=== PATIENT | male | born 1965 | race African-American/Black ===

== ENCOUNTER 2021-07-20 00:56 | Inpatient (IN) | payer BC, OTHER ==
[~2021-07-20] VITALS: Ht 185.4 cm; Wt 68.9 kg
--- NOTE | 2021-07-20 02:00 | NUR ---
PT BIBRA C/O BLOOD IN STOOL AND LOW HGB 5.9. LAST MELENA WAS AT 2345. PT PLACED ON MONITOR.
[2021-07-20] MEDS ORDERED: PANTOPRAZOLE 40 MG VIAL ONE (02:18)
[2021-07-20] MEDS: PANTOPRAZOLE 80 MG in IV NS 0.9% 500 ML IV ONE ×2 (02:23→02:32)
[2021-07-20 02:43] LABS: BASOPHILS % (AUTO) 0.2 % (0.0-2.0); EOSINOPHILS % (AUTO) 0.4 % (0.0-6.0); LYMPHOCYTES # (AUTO) 3.2 K/uL (0.8-4.8); LYMPHOCYTES % (AUTO) 32.3 % (20.0-44.0); MEAN CORPUSCULAR HGB CONC 33 g/dl (31.0-36.0); MEAN CORPUSCULAR VOLUME 97 fL (80-96); MONOCYTES # (AUTO) 0.7 K/uL (0.1-1.30); MONOCYTES % (AUTO) 7.3 % (2.0-12.0); NEUTROPHILS # (AUTO) 5.9 K/uL (1.8-8.9); NEUTROPHILS % (AUTO) 59.8 % (43.0-81.0); PLATELET COUNT (AUTO) 84 K/uL (150-450); WHITE BLOOD COUNT (AUTO) 9.9 K/uL (4.3-11.0)
[2021-07-20 02:53] LABS: RED BLOOD CELL COUNT(AUTO) 1.81 MIL/uL (4.5-6.0)
[2021-07-20 02:55] LABS: HEMATOCRIT 18 % (39-51); HEMOGLOBIN 5.8 g/dL (13.5-17.5)
[2021-07-20 02:59] LABS: ALANINE AMINOTRANSFERASE 18 U/L (12-78); ALBUMIN 1.6 g/dL (3.4-5.0); ALKALINE PHOSPHATASE 149 U/L (46-116); ASPARTATE AMINOTRANSFERASE 50 U/L (15-37); BILIRUBIN,DIRECT 0.1 mg/dL (0.0-0.2); BILIRUBIN,TOTAL 0.3 mg/dL (0.2-1.0); CALCIUM, SERUM 7.8 mg/dL (8.5-10.1); CARBON DIOXIDE 23 mmol/L (21-32); CHLORIDE 107 mmol/L (98-107); CREATININE 0.9 mg/dL (0.6-1.3); GLUCOSE 88 mg/dL (74-106); LIPASE 107 U/L (73-393); POTASSIUM 4.3 mmol/L (3.5-5.1); SODIUM SERUM 138 mmol/L (136-145); TOTAL PROTEIN, SERUM 5.4 g/dL (6.4-8.2); UREA NITROGEN, BLOOD 21 mg/dL (7-18)
[2021-07-20] MEDS ORDERED: IV NS 0.9% 1,000 ML BAG IV ONE ×2 (03:00→06:30)
--- NOTE | 2021-07-20 05:09 | NUR ---
CALL LAB TO FOLLOW UP WITH BLOOD AND PLATELET. BLOOD IS NOT READY YET.
--- NOTE | 2021-07-20 05:43 | NUR ---
DR MIRELES ON THE PHONE W/ LAURA DAWN
--- NOTE | 2021-07-20 05:56 | NUR ---
MRSA SWAB COLLECTED AND SENT TO LAB. PATIENT'S BELONGINGS LIST DONE.
--- NOTE | 2021-07-20 05:59 | NUR ---
DR MIRELES ON THE PHONE W/ DR VELIZ FOR GI CONSULT
[2021-07-20 07:41] LABS: CREATININE 0.9 mg/dL (0.6-1.3); POTASSIUM 4.2 mmol/L (3.5-5.1)
[2021-07-20 07:43] LABS: BASOPHILS % (AUTO) 0.2 % (0.0-2.0); EOSINOPHILS % (AUTO) 0.4 % (0.0-6.0); LYMPHOCYTES % (AUTO) 33.9 % (20.0-44.0); MEAN CORPUSCULAR HGB CONC 32 g/dl (31.0-36.0); MEAN CORPUSCULAR VOLUME 102 fL (80-96); MONOCYTES # (AUTO) 0.9 K/uL (0.1-1.30); MONOCYTES % (AUTO) 5.9 % (2.0-12.0); NEUTROPHILS # (AUTO) 8.7 K/uL (1.8-8.9); NEUTROPHILS % (AUTO) 59.6 % (43.0-81.0); PLATELET COUNT (AUTO) 75 K/uL (150-450); WHITE BLOOD COUNT (AUTO) 14.6 K/uL (4.3-11.0)
[2021-07-20 07:51] LABS: HEMATOCRIT 17 % (39-51); HEMOGLOBIN 5.5 g/dL (13.5-17.5)
[2021-07-20 08:22] LABS: MYELOCYTES % 1 % (0-0)
--- NOTE | 2021-07-20 09:35 | NUR ---
ALEXANDER TO PT POA; MORALES PHILIPPE [phone]
--- NOTE | 2021-07-20 09:47 | NUR ---
PER DR DAWN TO GIVE TOTAL OF 4 UNITS OF PRBS TO THE PATIENT ONCE THE BLOOD IS READY. SPOKE WITH GRACE FROM BLOOD BANK AND SHE INFORMED THAT THE PATIENT HAS ANTIBODIES AND BLOOD BANK IS STILL WORKING ON GETTING THE BLOOD. PER GRACE IT WILL TAKE HOURS. DR DAWN IS MADE AWARE.
--- NOTE | 2021-07-20 10:55 | NUR ---
TALKED TO SUSHILA LOVE AND SHE STATED PATIENT IS GOING TO BE TRANSFERED OUT TO ANOTHER FACILITY.
--- NOTE | 2021-07-20 11:50 | NUR ---
CALL FROM SUSHILA SWEENEY, ASKED BY DR DAWN TO HELP WITH TX.
--- NOTE | 2021-07-20 12:19 | NUR ---
FAXED COVID RESULT TO [phone] [facility]
[2021-07-20 14:07] LABS: BAND % (MANUAL) 12 % (0.0-5.0); LYMPHOCYTES % (MANUAL) 15 % (16-48); METAMYELOCYTES % 4 % (0-0); MONOCYTES % (MANUAL) 2 % (0-11.0); MYELOCYTES % 1 % (0-0); NEUTROPHILS % (MANUAL) 66 (42-76)
[2021-07-20 14:26] LABS: BAND % (MANUAL) 11 % (0.0-5.0)
[2021-07-20 14:27] LABS: LYMPHOCYTES % (MANUAL) 19 % (16-48); METAMYELOCYTES % 2 % (0-0); MONOCYTES % (MANUAL) 8 % (0-11.0)
--- NOTE | 2021-07-20 14:53 | NUR ---
REPORT GIVEN TO DEMETRIS ROGER FOR SRINI
--- NOTE | 2021-07-20 15:01 | NUR ---
BED GIVEN 117-2
[2021-07-20 15:03] LABS: NEUTROPHILS % (MANUAL) 59 (42-76)
[2021-07-20 16:00] VITALS: BP 137/66
--- NOTE | 2021-07-20 16:06 | NUR ---
PT TRANSFERRED TO [facility] VIA ACLS PROTOCOL. ALL BELONGINGS WITH PT.
--- NOTE | 2021-07-20 16:25 | NUR ---
SERVICE LINE LAYER NOTE PT RECEIVED VIA GURNEY FROM ER ON STABLE CONDITION ALERT AND ORIENTED X4 WITH NO S/SX OF SOB OR DISTRESS AT THIS TIME TOLERATING ROOM AIR WELL, BREATHING EVEN AND UNLABORED, PT CAME FROM SNF FOR COMPLAINS OF WEAKNESS, HEMOGLOBIN 5.5, WAITING FOR PRBC ORDER TO START BLOOD TRANSFUSION PICC LINE ON THE SCOOBY PATENT AND FLUSHING WELL, PT IS PRESENT WITH BLOODY WILLIE, CHANGED AND KEPT CLEAN, SAFETY MEASURES IN PLACE CALL LIGHT WITHIN REACH, BED LOCKED AND IN LOWEST POSITION WILL CONTINUE TO MONITOR
[2021-07-20] MEDS ORDERED: PEG 3350/NA SULF,BICARB,CL/KCL 4,000 ML BOTTLE PO ONE (17:00)
--- NOTE | 2021-07-20 17:30 | NUR ---
RN NOTE PER PHARMACY START BLOOD TRANSFUSION FIRST AND THEN THEY WILL LET US KNOW WHEN TO START THE GOLYTELY
[2021-07-20] MEDS: IV D5/ 0.9% NACL 1,000 ML IV PRN (17:42)
--- NOTE | 2021-07-20 18:17 | NUR ---
RN NOTE BLOOD IS NOT READY YET STILL WAITING FOR BLOOD BANK
--- NOTE | 2021-07-20 18:56 | NUR ---
RN NOTE PT REMAINS IN BED ALERT AND ORIENTED X4 WITH NO S/SX OF SOB OR DISTRESS AT THIS TIME TOLERATING ROOM AIR WELL, BREATHING EVEN AND UNLABORED, TELE READING TACHY 121 HEMOGLOBIN 5.5, WAITING FOR PRBC ORDER AND BLOOD BANK TO START BLOOD TRANSFUSION PICC LINE ON THE SCOOBY PATENT AND FLUSHING WELL RUNNING D5 100CC/HR , PT IS PRESENT WITH BLOODY WILLIE, CHANGED AND KEPT CLEAN, WAITING FOR PHARMACY TO BRING GOLYTELY TO DO A COLONOSCOPY TOMORROW, SAFETY MEASURES IN PLACE CALL LIGHT WITHIN REACH, BED LOCKED AND IN LOWEST POSITION WILL ENDORSE TO ACQUISITION LEADDRESS FITTER
--- NOTE | 2021-07-20 19:20 | NUR ---
TELE-TD/RN: SPOKE WITH BLOOD BANK ACCORDING TO THEM BLOOD IS A SEND OUT AND HASN'T BEEN PICKED UP BY [facility]. BLOOD WON'T BE AVAILABLE UNTIL STOKER INSTALLER. I SPOKE WITH DR. VELIZ ABOUT THE DELAY IN BLOOD HE WOULD STILL LIKE ME TO PROCEED WITH BOWEL PREP FOR COLONOSCOPY IN AM. WILL BEGIN SUKUMAR.
--- NOTE | 2021-07-20 19:33 | NUR ---
TELE-TD/RN: PT STATES HE CAN NOT PHYSICALLY DRINK A GALLON OF GOLYTELY. ASKED FOR NGTUBE SO MEDICATION CAN BE ADMINISTERED. PER DR. NEREYDA MUÑOZ TO PLACE NGT FOR MED ADMINISTRATION.
[2021-07-20 20:00] VITALS: BP 147/79
[2021-07-20] MEDS: PANTOPRAZOLE 40 MG VIAL IV SCH (20:06)
--- NOTE | 2021-07-20 20:35 | NUR ---
TELE-TD/RN: NGTUBE PLACED BY MYSELF MARKED 60CM AT THE RIGHT NARE. CONFIRMED BY AUSCULTATION. AWAITING CXR RESULTS.
[2021-07-20] MEDS: SOD FERRIC GLUC 125 MG in IV NS 0.9% 100 ML IV SCH (20:41)
[2021-07-20] MEDS ORDERED: ACETAMINOPHEN 325 MG TABLET PO PRN (21:00)
[2021-07-20] MEDS ORDERED: HYDROCODONE/APAP 5/325MG TABLET PO PRN (21:00)
[2021-07-20] MEDS ORDERED: ZOLPIDEM TARTRATE 5 MG TABLET PO PRN (21:00)
--- NOTE | 2021-07-20 21:00 | NUR ---
RN NOTES, SPOKE WITH BLOOD BANK REGARDING THE BLOOD THAT NEED TO BE TRANSFUSED YO PATIENT AND ACCORDING TO SUPERVISOR FERTILIZER PROCESSING, THE BLOOD IS NOT AVAILABLE AND THEY AWAITING FROM [facility] TO DELIVER, ACCORDING TO SUPERVISOR FERTILIZER PROCESSING [facility] HAS NOT BLOOD OF THAT TYPE AVAILABLE, QUESTION THE LAB THEN WHEN AND HOW WE GOING TO GET THE BLOOD, AND HE STATED THAT [facility] WILL LET THEM KNOW, WILL CONTINUE TO MONITOR AND GET IN TOUCH WITH LAB FOR UPDATE.
[2021-07-20 22:00] LABS: HEMOGLOBIN 4.7 g/dL (13.5-17.5)
--- NOTE | 2021-07-20 22:05 | NUR ---
TELE-TD/RN: CRITICAL H/H 4.02/[address] DAWN[address] PER [address]. NEREYDA MUÑOZ TO GIVE UNCROSS MATCHED BLOOD IF OK WITH BLOOD BANK.
--- NOTE | 2021-07-20 22:40 | NUR ---
tele-td/rn: PER TOBACCO BLENDER JONO EMERGENCY BLOOD WILL NOT SCAN THROUGH [employer]. BLOOD MANUALLY CHECKED WITH GAS ENGINEER MARIE. TYPE O POS, [phone], EXPIRATION 08/20/2021 PER TIN WHIZ MACHINE OPERATOR JONO THIS PRODUCT IS OK TO ADMINISTER BY PATHOLOGIST JESSICA PANDEY. PRE ADMINISTRATION VITALS TEMP 98.2 HR 118 BP 135/70 RR 20 WILL FOLLOW UP IN 15MINS PER PROTOCOL
--- NOTE | 2021-07-20 23:01 | NUR ---
15 MINS POST TRANSFUSION VITALS: PRE ADMINISTRATION VITALS TEMP 97.6 HR 112 BP 120/81 RR 20 Addendum: 07/20/21 at 2318 by LOGAN HAWKINS RN THESE ARE POST ADMINISTRATION VITALS.
--- NOTE | 2021-07-20 23:19 | NUR ---
30 MINS POST TRANSFUSION VITALS: TEMP 97.8 HR 111 BP 124/79 RR 20
[2021-07-21] VITALS (45 sets, daily range): BP systolic 80–137; BP diastolic 16–86
--- NOTE | 2021-07-21 | NUR ---
60 MINS POST TRANSFUSION VITALS: TEMP 98.0 HR 112 BP 137/86 RR 20
--- NOTE | 2021-07-21 01:14 | NUR ---
TELE-TD/RN: PT WAS REFUSING FURTHER TREATMENT UNLESS SOMETHING COULD BE DONE ABOUT HIS FREQUENT LARGE BOWL MOVEMENTS. DR. DAWN WAS NOTIFIED AND ORDER OR RECTAL TUBE WAS GIVEN. PLACED ON PT. PT TOLERATED WELL. DR. DAWN ORDERED ANOTHER UNIT OF BLOOD BUT ACCORDING TO THE LAB THERE IS NO ONE AVAILABLE TO DISTRIBUTE BLOOD UNTIL MORNING. WILL CONTINUE TO MONITOR THE PT CLOSELY.
--- NOTE | 2021-07-21 01:30 | NUR ---
END TRANSFUSION VITALS: TEMP 97.9 HR 108 BP 108/79 RR 20
--- NOTE | 2021-07-21 01:30 | NUR ---
TELE-TD/RN: PER DR. DAWN PT NEEDS 2 MORE UNITS PRBC. PT JUST FINISHED 1 UNIT PRBC BUT IS STILL HAVING FREQUENT LARGE MARCO RED BLOOD STOOLS. DR. DAWN ASKED ME TO INITIATE CHAIN OF COMMAND TO GET BLOOD TO THE PT. COMMUNICATIONS EQUIPMENT INSTALLER HEMALATHA MADE AWARE. SHE SAID SHE WILL CALL THE MAILING SECTION CLERK. WILL CONTINUE TO MONITOR PT.
--- NOTE | 2021-07-21 02:00 | NUR ---
TELE-TD/RN: SP;Nicole;JENNIFER; WITH NURSING MOLECULAR GENETIC PATHOLOGIST TEOFILO. SHE CALLED THE PC NETWORK TECHNICIAN BUT THERE WAS NO ANSWER. SHE WILL ATTEMPT TO CALL AGAIN NOW.
[2021-07-21 02:15] LABS: BASOPHILS % (AUTO) 0.3 % (0.0-2.0); EOSINOPHILS % (AUTO) 0.5 % (0.0-6.0); HEMATOCRIT 21 % (39-51); LYMPHOCYTES # (AUTO) 2.7 K/uL (0.8-4.8); MEAN CORPUSCULAR HGB CONC 34 g/dl (31.0-36.0); MEAN CORPUSCULAR VOLUME 93 fL (80-96); MONOCYTES # (AUTO) 0.4 K/uL (0.1-1.30); MONOCYTES % (AUTO) 5.1 % (2.0-12.0); NEUTROPHILS # (AUTO) 5.2 K/uL (1.8-8.9); NEUTROPHILS % (AUTO) 62.1 % (43.0-81.0); PLATELET COUNT (AUTO) 51 K/uL (150-450); RED BLOOD CELL COUNT(AUTO) 2.21 MIL/uL (4.5-6.0)
[2021-07-21 02:19] LABS: HEMOGLOBIN 6.9 g/dL (13.5-17.5)
--- NOTE | 2021-07-21 02:39 | NUR ---
TELE-TD/RN: LATEST H/H .04/[address] DAWN. WILL CONTINUE TO MONITOR.
[2021-07-21] MEDS: IV D5/ 0.9% NACL 1,000 ML IV PRN ×2 (05:00→12:11)
--- NOTE | 2021-07-21 06:13 | NUR ---
TELE-TD/RN: DR. DAWN GIVEN UPDATE ON PT. PER DR. DAWN PT NEEDS 2 UNITS PRBC STAT. PER FUEL DISTRIBUTION SYSTEM OPERATOR GABBY NO ONE IS CURRENTLY AVAILABLE TO RELEASE BLOOD. WILL TRY AGAIN SHORTLY.
--- NOTE | 2021-07-21 06:40 | NUR ---
RN NOTES, SPOKE WITH MAY FROM BLOOD BANK TO GET INFORMATION ABOUT THE BLOOD FOR PATIENT, WE AWAITING FROM LAST NIGHT, AND SHE SAID THAT THEY STILL WORKING ON THAT, AND WILL LET US KNOW SOON THEY HAVE AVAILABLE, ACCORDING TO HER [facility] HAS NOT DELIVER THE BLOOD.
--- NOTE | 2021-07-21 07:05 | NUR ---
TELE-TD/RN: ENDORSE STAT PRBC TO DANIELLE ROGER.
[2021-07-21] MEDS ORDERED: MAGN400O6 PO (07:32)
[2021-07-21] MEDS ORDERED: PANT40TA2 PO (07:32)
[2021-07-21] MEDS ORDERED: MULT-447 PO (07:32)
[2021-07-21] MEDS ORDERED: HYDR-3973 PO (07:32)
[2021-07-21] MEDS ORDERED: BISA10SU11 RC (07:32)
[2021-07-21] MEDS ORDERED: DOCU-141 PO (07:32)
[2021-07-21] MEDS ORDERED: NA P133E RC (07:32)
--- NOTE | 2021-07-21 07:46 | NUR ---
RN MORNING NOTE PT IS AWAKE AND LYING IN BED. PT IS ON RA AND TOLERATING WELL WITH NO SIGNS OF DISTRESS OR LABORED BREATHING. PT IS A/OX4. NG TUBE IS IN PLACE WITH NO SUCTION AND PT ALSO HAS RECTAL TUBE WITH BLOOD IN COLLECTION POUCH. PT HAS L UA PICC LINE INFUSING D5NS @ 100 ML/HR. PT IS NPO AND ON BR. PT SCHEDULED FOR COLONOSCOPY TODAY, ALL CONSENTS HAVE BEEN SIGNED. BE IS LOCKED IN LOWEST POSITION X2 GUARD RAILS UP, CALL LIGHT IS WITHIN REACH, AND ALL HOSPITAL PROTOCOLS ARE IN PLACE. WILL CONTINUE TO MONITOR THIS SHIFT.
[2021-07-21] MEDS: PANTOPRAZOLE 40 MG VIAL IV SCH ×2 (08:08→21:39)
--- NOTE | 2021-07-21 10:11 | NUR ---
patient become more altered,dasaturates on n/c to 80's,sbp on 80,s,still awaits blood,rapid response called,bolus ns started dr. nicolas notified per blood bank blood still not availble.
[2021-07-21] MEDS ORDERED: NOREPINEPHRINE 8 MG in IV NS 0.9% 242 ML IV PRN (10:30)
[2021-07-21 10:35] LABS: BASOPHILS # (AUTO) 0.1 K/uL (0.0-0.2); BASOPHILS % (AUTO) 0.4 % (0.0-2.0); EOSINOPHILS % (AUTO) 0.3 % (0.0-6.0); LYMPHOCYTES # (AUTO) 4.9 K/uL (0.8-4.8); LYMPHOCYTES % (AUTO) 31.6 % (20.0-44.0); MEAN CORPUSCULAR HGB CONC 33 g/dl (31.0-36.0); MEAN CORPUSCULAR VOLUME 93 fL (80-96); MONOCYTES # (AUTO) 0.6 K/uL (0.1-1.30); MONOCYTES % (AUTO) 3.8 % (2.0-12.0); NEUTROPHILS % (AUTO) 63.9 % (43.0-81.0); RED BLOOD CELL COUNT(AUTO) 2.13 MIL/uL (4.5-6.0); WHITE BLOOD COUNT (AUTO) 15.6 K/uL (4.3-11.0)
[2021-07-21 10:38] LABS: HEMATOCRIT 20 % (39-51); HEMOGLOBIN 6.5 g/dL (13.5-17.5); PLATELET COUNT (AUTO) 48 K/uL (150-450)
--- NOTE | 2021-07-21 11:15 | NUR ---
transferred to icu per protocol.
--- NOTE | 2021-07-21 13:35 | NUR ---
RN NOTE BEGIN TRANSFUSION PT IS O NEG, PT RECEIVING O POSITIVE BLOOD DUE TO EMERGENCY BLOOD ORDER. PER DR. PANDEY, OK TO GIVE O NEG. TRANSFUSION HAS BEGUN AT THIS TIME. VS: TEMP 97.8, HR 117, RR 22, BP 92/69. WILL CONTINUE TO MONITOR. Addendum: 07/21/21 at 1602 by DANIELLE SIN RN NAVEED SHANNONING IS BEING DONE ON PAPER
[2021-07-21 13:49] LABS: CALCIUM, SERUM 7.1 mg/dL (8.5-10.1); CREATININE 0.9 mg/dL (0.6-1.3); POTASSIUM 3.7 mmol/L (3.5-5.1)
[2021-07-21 13:53] LABS: HEMOGLOBIN 4.9 g/dL (13.5-17.5)
[2021-07-21] MEDS ORDERED: EPOETIN ALFA-EPBX 10,000 UNIT/ML VIAL IV ONE (15:00)
--- NOTE | 2021-07-21 15:35 | NUR ---
RN NOTE BEGIN TRANSFUSION BEGINNING SECOND UNIT OF PRBC. PT IS O NEG, PT RECEIVING O POSITIVE BLOOD DUE TO EMERGENCY BLOOD ORDER. PER DR. PANDEY, OK TO GIVE O NEG. TRANSFUSION HAS BEGUN AT THIS TIME. VS: TEMP 98.6, HR 114, RR 22, BP 86/62. TOLERATING WELL AT THIS TIME. WILL CONTINUE TO MONITOR. Addendum: 07/21/21 at 1722 by DANIELLE SIN RN NAVEED CHARTING IS BEING DONE ON PAPER.
--- NOTE | 2021-07-21 17:15 | NUR ---
RN NOTE PHONE CALL RECEIVED CALL FROM MORALES PHILIPPE. PER MORALES, SHE IS PTS EX . PT VERBALIZED AND AGREED MORALES IS HIS EX AND POA AND VERBALIZED PERMISSION TO TALK TO MORALES.
[2021-07-21 17:29] LABS: BAND % (MANUAL) 2 % (0.0-5.0); EOSINOPHILS % (MANUAL) 2 % (0-4); LYMPHOCYTES % (MANUAL) 18 % (16-48); METAMYELOCYTES % 5 % (0-0); MONOCYTES % (MANUAL) 3 % (0-11.0); MYELOCYTES % 3 % (0-0); NEUTROPHILS % (MANUAL) 66 (42-76); REACTIVE LYMPHOCYTES 1 % (0-0)
--- NOTE | 2021-07-21 17:30 | NUR ---
RN NOTE TRANSFUSION TRANSFUSION ENDED. TOLERATED WELL PT STABLE AT THIS TIME. VS: T 98.3 HR 111 RR 20 BP 87/66. COMPLETED MANUAL BLOOD TRANSFUSION SHEET.
[2021-07-21 17:35] LABS: WHITE BLOOD COUNT (AUTO) 10.6 K/uL (4.3-11.0)
[2021-07-21] MEDS ORDERED: NS IV ONE (19:00)
--- NOTE | 2021-07-21 19:22 | NUR ---
RN CLOSING NOTE PT WAS TRANSFERRED TO ICU FROM [facility] THIS MORNING AFTER COMPLAINTS OF SOB. PT BP HAD DECREASED AND PT BECAME LETHARGIC. PT RECEIVED 3L BOLUS NS. PT IS CURRENTLY IN BED AND ON 15L O2 VIA NON REBREATHER SAT 100% TOLERATING WELL WITH NO SIGNS OF DISTRESS OR LABORED BREATHING. PT IS TELE MONITORED AND ST 110. PT IS A/OX4 AND NPO. RECTAL TUBE IS IN PLACE AND DRAINING FROM RECTAL BLEED. PT HAS L UA PICC LINE PATENT AND FLUSHING WELL INFUSING WITH D5NS @100ML/HR. PT RECEIVED 2 UNITS PRBC AND TOLERATED WELL WITH NO REACTIONS. PT IS CURRENTLY WAITING FOR 2 UNITS OF PLATELETS WHEN AVAILABLE FROM LAB. WILL ENDORSE TO OPTOMETRIC TECH NURSE FOR SRINI.
--- NOTE | 2021-07-21 19:30 | NUR ---
ICU/RN: RECEIVED PT IN BED A/Ox4. PT IS ON 15L NRB. PT TITRATED OFF SATURATING WELL ON NASAL CANULA 4 LITERS NO SIGNS OF DISTRESS OR LABORED BREATHING. NGTUBE IN PLACE 60cm @ RIGHT NARES CLAMPED. PT HAS RECTAL TUBE WITH BLOOD/STOOL IN COLLECTION POUCH. PT HAS LEFT UA PICC LINE INFUSING FLUSHING WELL.. PT IS NPO. BED IS LOCKED IN LOWEST POSITION X2 GUARD RAILS UP, CALL LIGHT IS WITHIN REACH WILL CONTINUE TO MONITOR.
[2021-07-21] MEDS: SOD FERRIC GLUC 125 MG in IV NS 0.9% 100 ML IV SCH (20:00)
[2021-07-21 20:44] LABS: HEMOGLOBIN 10.3 g/dL (13.5-17.5)
--- NOTE | 2021-07-21 22:00 | NUR ---
ICU/RN: DR. ALMARAZ AT BEDSIDE TO EVALUATE PT.
--- NOTE | 2021-07-21 23:15 | NUR ---
ICU/RN: PER CRAIG IN LAB THE [facility] DOESN'T HAVE PLATELETS AVAILABLE UNTIL TOMORROW MORNING.
[2021-07-22] VITALS (82 sets, daily range): BP systolic 56–112; BP diastolic 33–80
[2021-07-22 00:49] LABS: HEMOGLOBIN 9.4 g/dL (13.5-17.5)
[2021-07-22 05:13] LABS: BASOPHILS % (AUTO) 0.1 % (0.0-2.0); CALCIUM, SERUM 7.9 mg/dL (8.5-10.1); EOSINOPHILS % (AUTO) 0.2 % (0.0-6.0); HEMATOCRIT 30 % (39-51); LYMPHOCYTES # (AUTO) 2.4 K/uL (0.8-4.8); LYMPHOCYTES % (AUTO) 12.2 % (20.0-44.0); MEAN CORPUSCULAR HGB CONC 33 g/dl (31.0-36.0); MEAN CORPUSCULAR VOLUME 92 fL (80-96); MONOCYTES # (AUTO) 0.6 K/uL (0.1-1.30); MONOCYTES % (AUTO) 2.8 % (2.0-12.0); NEUTROPHILS # (AUTO) 16.8 K/uL (1.8-8.9); NEUTROPHILS % (AUTO) 84.7 % (43.0-81.0); POTASSIUM 3.8 mmol/L (3.5-5.1); RED BLOOD CELL COUNT(AUTO) 3.28 MIL/uL (4.5-6.0); WHITE BLOOD COUNT (AUTO) 19.8 K/uL (4.3-11.0)
[2021-07-22 05:52] LABS: PLATELET COUNT (AUTO) 11 K/uL (150-450)
--- NOTE | 2021-07-22 06:45 | NUR ---
ICU/RN: PER BLOOD BANK CLS PTS PLTS WILL ARRIVE IN 2 HOU[address] TO THE [facility]. [address]. DAWN UPDATED. WILL ENDORSE TO AM SHIFT.
--- NOTE | 2021-07-22 07:45 | NUR ---
ICU/RN PT IS RESTING IN THE BED.ON 4L N/C SAT O2-100%.V/S STABLE,AFEBRILE.OFF LEVOPHED. AWAKE ,ALERT .LEFT UPPER ARM PICC LINE.USING URINAL .PT HAS GI BLEED.HAS RECTAL TUBE WITH BLOODY STOOL WAITING FOR COLONOSCOPY.NPO.NG TUBE CLAMPED.SACRAL WOUND COVERED WITH DRESSING. LABS REVIEW.PLT-11.WAITING FOR PLATELETS FROM [facility]. REPOSITION FOR COMFORT.
[2021-07-22] MEDS: PANTOPRAZOLE 40 MG VIAL IV SCH ×2 (08:13→22:47)
--- NOTE | 2021-07-22 09:00 | NUR ---
ICU/RN DUE MEDS ARE GIVEN ORDERED.
[2021-07-22 09:17] LABS: HEMOGLOBIN 9.8 g/dL (13.5-17.5)
[2021-07-22 12:21] LABS: BAND % (MANUAL) 4 % (0.0-5.0); LYMPHOCYTES % (MANUAL) 12 % (16-48); MONOCYTES % (MANUAL) 2 % (0-11.0); NEUTROPHILS % (MANUAL) 82 (42-76)
--- NOTE | 2021-07-22 13:15 | NUR ---
ICU/RN 1 UNIT OF PLATELETS GIVEN ORDERED. NO S/S OF REACTION NOTED. V/S STABLE,AFEBRILE . H/H STAT ORDERED.PM CARE PROVIDED.WOUND DRESSING DONE ORDERED.
[2021-07-22] MEDS: SOD FERRIC GLUC 125 MG in IV NS 0.9% 100 ML IV SCH (14:22)
[2021-07-22 15:16] LABS: BASOPHILS % (AUTO) 0.1 % (0.0-2.0); EOSINOPHILS % (AUTO) 0.2 % (0.0-6.0); HEMATOCRIT 27 % (39-51); LYMPHOCYTES # (AUTO) 2.3 K/uL (0.8-4.8); LYMPHOCYTES % (AUTO) 15.2 % (20.0-44.0); MEAN CORPUSCULAR HGB CONC 34 g/dl (31.0-36.0); MEAN CORPUSCULAR VOLUME 91 fL (80-96); MONOCYTES # (AUTO) 0.5 K/uL (0.1-1.30); MONOCYTES % (AUTO) 3.2 % (2.0-12.0); NEUTROPHILS # (AUTO) 12.2 K/uL (1.8-8.9); NEUTROPHILS % (AUTO) 81.3 % (43.0-81.0); PLATELET COUNT (AUTO) 81 K/uL (150-450); RED BLOOD CELL COUNT(AUTO) 2.91 MIL/uL (4.5-6.0)
[2021-07-22 15:44] LABS: BAND % (MANUAL) 6 % (0.0-5.0); LYMPHOCYTES % (MANUAL) 10 % (16-48); MONOCYTES % (MANUAL) 1 % (0-11.0); NEUTROPHILS % (MANUAL) 83 (42-76)
[2021-07-22 15:46] LABS: WHITE BLOOD COUNT (AUTO) 15.1 K/uL (4.3-11.0)
--- NOTE | 2021-07-22 18:40 | NUR ---
ICU/RN PT IS BACK FROM COLONOSCOPY,NO RECTAL TUBE.PT HAS RECTAL MASS.PM CARE PROVIDED.REPOSITION FOR COMFORT.PER DR HILLS.PT NEEDS 2 MORE PLT .
--- NOTE | 2021-07-22 19:30 | NUR ---
ICU/RN: RECEIVED PT IN BED A/Ox4. PT IS ON 10L SIMPLE MASK. PT TITRATED OFF SATURATING WELL ON ROOM AIR. NO SIGNS OF DISTRESS OR LABORED BREATHING. NGTUBE DISCONTINUED. PT HAS LEFT UA PICC LINE FLUSHING WELL. BED IS LOCKED IN LOWEST POSITION X2 GUARD RAILS UP, CALL LIGHT IS WITHIN REACH WILL CONTINUE TO MONITOR.
--- NOTE | 2021-07-22 20:30 | NUR ---
ICU/RN: POA CALLED AND GIVEN UPDATE ON PT.
[2021-07-23] VITALS (30 sets, daily range): BP systolic 89–107; BP diastolic 67–79
--- NOTE | 2021-07-23 01:00 | NUR ---
ICU/RN: PT HAD SMALL LIQUID BM. BATHED AND LINENS CHANGED PT TOLERATED WELL.
[2021-07-23 04:45] LABS: BASOPHILS % (AUTO) 0.1 % (0.0-2.0); EOSINOPHILS % (AUTO) 0.2 % (0.0-6.0); HEMATOCRIT 24 % (39-51); HEMOGLOBIN 8.1 g/dL (13.5-17.5); LYMPHOCYTES # (AUTO) 3.2 K/uL (0.8-4.8); LYMPHOCYTES % (AUTO) 16.3 % (20.0-44.0); MEAN CORPUSCULAR HGB CONC 34 g/dl (31.0-36.0); MEAN CORPUSCULAR VOLUME 91 fL (80-96); MONOCYTES # (AUTO) 0.6 K/uL (0.1-1.30); MONOCYTES % (AUTO) 3.1 % (2.0-12.0); NEUTROPHILS # (AUTO) 15.6 K/uL (1.8-8.9); NEUTROPHILS % (AUTO) 80.3 % (43.0-81.0); PLATELET COUNT (AUTO) 82 K/uL (150-450); RED BLOOD CELL COUNT(AUTO) 2.66 MIL/uL (4.5-6.0); WHITE BLOOD COUNT (AUTO) 19.4 K/uL (4.3-11.0)
[2021-07-23 05:21] LABS: ALBUMIN 1.6 g/dL (3.4-5.0); BILIRUBIN,DIRECT 0.2 mg/dL (0.0-0.2); BILIRUBIN,TOTAL 0.7 mg/dL (0.2-1.0); CALCIUM, SERUM 7.4 mg/dL (8.5-10.1); CREATININE 0.9 mg/dL (0.6-1.3); POTASSIUM 3.6 mmol/L (3.5-5.1); TOTAL PROTEIN, SERUM 4.9 g/dL (6.4-8.2)
--- NOTE | 2021-07-23 08:00 | NUR ---
RN NOTES RECEIVED PATIENT (PT) ASLEEP, WOKE UP AN HOUR INTO SHIFT, PT ABLE TO MAKE NEEDS KNOWN, GRIMACING AND GRUNTING NOTED WHEN PLACED IN HIGH WARREN POSITION TO EAT BREAKFAST, OFFERED PAIN MEDICATION STATED IN A LEVEL OF 2 FROM 0-10 HOWEVER REFUSED ANY PAIN MEDICATIONS AT THIS TIME, THIN LIQUID DIET NOTED, LEFT UA IV LINE INTACT AND PATENT, URINE OUTPUT 200 ml RED JIMMY COLOR, SIDE RAILS UP X 2 FOR SAFETY, BED WHEELS LOCKED, BED IN LOW POSITION FOR SAFETY, CALL LIGHT IN REACH.
[2021-07-23] MEDS: PANTOPRAZOLE 40 MG VIAL IV SCH (08:12)
[2021-07-23] MEDS ORDERED: Potassium Chloride 10 MEQ in IV NS 0.9% 1,000 ML IV PRN (12:00)
[2021-07-23 12:35] LABS: CALCIUM, SERUM 7.7 mg/dL (8.5-10.1); CREATININE 0.9 mg/dL (0.6-1.3); POTASSIUM 3.6 mmol/L (3.5-5.1)
[2021-07-23 12:38] LABS: HEMOGLOBIN 8.2 g/dL (13.5-17.5)
[2021-07-23 13:22] LABS: BAND % (MANUAL) 4 % (0.0-5.0); LYMPHOCYTES % (MANUAL) 20 % (16-48); MONOCYTES % (MANUAL) 3 % (0-11.0); NEUTROPHILS % (MANUAL) 73 (42-76)
[2021-07-23] MEDS: SOD FERRIC GLUC 125 MG in IV NS 0.9% 100 ML IV SCH (13:49)
[2021-07-23] MEDS: EPOETIN ALFA-EPBX 10,000 UNIT/ML VIAL IV SCH (15:18)
--- NOTE | 2021-07-23 16:02 | NUR ---
RN NOTES COVID 19 SWAB PERFORMED ON PATIENT DUE TO INCONCLUSIVE UNDETERMINED PREVIOUS TEST, SPECIMEN TAKEN TO LAB FOR EVALUATION, STATUS PENDING AT THIS TIME. NO S/S OF COVID NOTED NO SOB, NO FEVER, NO CHILLS, KEPT WARM WITH WARM BLANKETS OFTEN ROOM IS VERY COLD AT THIS TIME, OTHER RNs HELPED TRY TO GET THE TEMP IN ROOM MORE WARM AWAITING TO SEE IF SETTING THERMOMETER WORKED. BED LOW TO FLOOR, WHEELS LOCKED, CALL LIGHT IN REACH
--- NOTE | 2021-07-23 18:53 | NUR ---
RN Notes TRANSFERRED PT TO TELL MED SURG ROOM 111, REPORT GIVEN TO RN, PHOTO TAKEN OF COCCYX AREA AND PLACED IN FILE AND DOCUMENTED WITH MEASURING RULER, BM X2 RED BROWN, CLEANED DRY AND FRESH BRIEF APPLIED BEFORE TRANSFER TO MED SURG, ALL BELONGINGS TAKEN WITH PATIENT TO ROOM BACK PACK AND PERSONAL BELONGINGS, BED LOW TO FLOOR LOCKED AND SIDE RAILS UP X2, WHEELS LOCKED. CALL LIGHT IN REACH IN ROOM 111.
--- NOTE | 2021-07-23 19:30 | NUR ---
RN OPENING NOTE PATIENT IN BED, AWAKE. A/O X 3. PATIENT IS ABLE TO MAKE NEEDS KNOWN. PATIENT NOT IN ANY APPARENT DISTRESS OR PAIN AT THIS TIME. TELE MONITOR READS [address] PATIENT SCOOBY PICC LINE PATENT AND INTACT WITH IVF RUNNING WELL. PATIENT ON RA, TOLERATING WELL. SAFETY MEASURES IN PLACE:BED LOCKED AND IN LOWEST POSITION, CALL LIGHT WITHIN REACH, SIDE RAILS UP. WILL MONITOR PATIENT CLOSELY.
[2021-07-24] VITALS (10 sets, daily range): BP systolic 89–94; BP diastolic 56–70
--- NOTE | 2021-07-24 05:50 | NUR ---
RN NOTE FAXED ORDER FOR POTASSIUM 10 MEQ IN IV NS 0.9% 1000 ML TO NURSING CONTINUOUS IMPROVEMENT CONSULTANT, PER NURSING SUP. WE DON'T HAVE MED IN STOCK.
--- NOTE | 2021-07-24 07:00 | NUR ---
RN CLOSING NOTE PATIENT IN BED, EYES CLOSED. A/O X 3. PATIENT IS ABLE TO MAKE NEEDS KNOWN. PATIENT NOT IN ANY APPARENT DISTRESS OR PAIN AT THIS TIME. TELE MONITOR READS [address] PATIENT SCOOBY PICC LINE PATENT AND INTACT. IVF ON PAUSE AT THIS TIME. PATIENT ON RA, TOLERATING WELL. SAFETY MEASURES IN PLACE: BED LOCKED AND IN LOWEST POSITION, CALL LIGHT WITHIN REACH, SIDE RAILS UP. ALL NEEDS MET AND ATTENDED. ALL ORDERS CARRIED OUT. WILL ENDORSE TO DAY SHIFT NURSE FOR SRINI.
--- NOTE | 2021-07-24 07:22 | NUR ---
RN OPENING NOTE RECEIVED PATIENT IN BED A/O X 4 ON ROOM AIR. NO CURRENT SING OF DISTRESS, PATIENT DENIES ANY PAIN. PATIENT HAS A DIAPER AND IS ON A CLEAR LIQUID DIET. SCOOBY PICC IN PLACE SL. SAFETY PROTOCOL IN PLACE, BED IN LOWEST POSITION, 2 SIDE RAILS UP AND LOCKED. CALL LIGHT WITHIN REACH.
[2021-07-24 07:46] LABS: HEMOGLOBIN 7.1 g/dL (13.5-17.5)
[2021-07-24] MEDS: PANTOPRAZOLE 40 MG VIAL IV SCH (08:13)
[2021-07-24 08:48] LABS: BASOPHILS % (AUTO) 0.3 % (0.0-2.0); EOSINOPHILS % (AUTO) 0.3 % (0.0-6.0); HEMATOCRIT 22 % (39-51); HEMOGLOBIN 7.1 g/dL (13.5-17.5); LYMPHOCYTES # (AUTO) 2.4 K/uL (0.8-4.8); LYMPHOCYTES % (AUTO) 20.7 % (20.0-44.0); MEAN CORPUSCULAR HGB CONC 33 g/dl (31.0-36.0); MEAN CORPUSCULAR VOLUME 93 fL (80-96); MONOCYTES # (AUTO) 0.4 K/uL (0.1-1.30); MONOCYTES % (AUTO) 3.2 % (2.0-12.0); NEUTROPHILS # (AUTO) 8.7 K/uL (1.8-8.9); NEUTROPHILS % (AUTO) 75.5 % (43.0-81.0); RED BLOOD CELL COUNT(AUTO) 2.33 MIL/uL (4.5-6.0); WHITE BLOOD COUNT (AUTO) 11.5 K/uL (4.3-11.0)
[2021-07-24 08:50] LABS: PLATELET COUNT (AUTO) 37 K/uL (150-450)
[2021-07-24 08:51] LABS: LYMPHOCYTES % (MANUAL) 16 % (16-48); MONOCYTES % (MANUAL) 2 % (0-11.0); NEUTROPHILS % (MANUAL) 82 (42-76)
[2021-07-24] MEDS: SOD FERRIC GLUC 125 MG in IV NS 0.9% 100 ML IV SCH (14:50)
[2021-07-24] MEDS: EPOETIN ALFA-EPBX 10,000 UNIT/ML VIAL IV SCH (15:15)
--- NOTE | 2021-07-24 18:37 | NUR ---
RN CLOSING NOTE PATIENT IN BED A/O X 4 ON ROOM AIR. NO CURRENT SING OF DISTRESS, PATIENT DENIES ANY PAIN. PATIENT HAS A DIAPER AND IS ON A CLEAR LIQUID DIET. SCOOBY PICC IN PLACE SL. ALL MEDICATIONS ORDERED GIVEN AND NEEDS MET THOUGH OUT SHIFT SAFETY PROTOCOL IN PLACE, BED IN LOWEST POSITION, 2 SIDE RAILS UP AND LOCKED. CALL LIGHT WITHIN REACH. WILL ENDORSE TO NIGHT NURSE FOR SRINI.
--- NOTE | 2021-07-24 19:40 | NUR ---
NEWS VIDEOTAPE EDITOR OPENING NOTE PATIENT SLEEPING IN BED, EASILY AWAKENED, ALERT/ORIENTED X 4. PT STABLE ON RA, NO S/S OF DISTRESS OR SOB NOTED, BREATHING EVEN AND UNLABORED. PATIENT ON EXTERNAL INTERSTATE PLANNER READING SINUS TACHY, HR: 137. PT ON CLEAR LIQUID DIET. AWAITING BLOOD FOR TRANSFUSION. PER DAY SHIFT RN, PHARMACY WILL BRING NEW BAG OF POTASSIUM CHLORIDE IN NS. SCOOBY PICC LINE INTACT AND FLUSHING WELL, SALINE LOCKED. SAFETY MEASURES IN PLACE: CALL LIGHT WITHIN REACH, SIDE RAILS UP X, BED LOCKED IN LOW POSITION, BED ALARM ON. WILL CONTINUE TO MONITOR PATIENT
--- NOTE | 2021-07-24 23:00 | NUR ---
cream buyer Notes 1 unit of PRBC transfused. Patient tolerated well, no adverse effects. Vital signs wnl. Will continue to monitor patient
[2021-07-25] VITALS (16 sets, daily range): BP systolic 77–92; BP diastolic 47–65
--- NOTE | 2021-07-25 | NUR ---
WELDER/FITTER NOTE Iris from [place] called regarding transfer, wanted to know if financial clearance had been done by CM, stated I didn't see anything in the notes. Faxed COVID test results per request. Per Iris no bed available yet. Will endorse to day shift to f/u with CM
--- NOTE | 2021-07-25 04:00 | NUR ---
PLANT CONTROLS SPECIALIST NOTE CALLED LAB TO SEE IF 1 MORE UNIT OF PRBC IS AVAILABLE FOR PATIENT SINCE 2 UNITS NEED TO BE TRANSFUSED. PER LAB NOT AVAILABLE AT THIS TIME. ALSO STATED THAT PLATELETS WERE ORDERED BUT HADN'T ARRIVED. WILL ENDORSE TO DAY SHIFT NURSE
[2021-07-25 07:09] LABS: BASOPHILS % (AUTO) 0.2 % (0.0-2.0); EOSINOPHILS % (AUTO) 0.4 % (0.0-6.0); LYMPHOCYTES # (AUTO) 3.3 K/uL (0.8-4.8); LYMPHOCYTES % (AUTO) 29.6 % (20.0-44.0); MEAN CORPUSCULAR HGB CONC 34 g/dl (31.0-36.0); MEAN CORPUSCULAR VOLUME 87 fL (80-96); MONOCYTES # (AUTO) 0.5 K/uL (0.1-1.30); MONOCYTES % (AUTO) 4.1 % (2.0-12.0); NEUTROPHILS # (AUTO) 7.4 K/uL (1.8-8.9); NEUTROPHILS % (AUTO) 65.7 % (43.0-81.0); RED BLOOD CELL COUNT(AUTO) 2.32 MIL/uL (4.5-6.0); WHITE BLOOD COUNT (AUTO) 11.3 K/uL (4.3-11.0)
--- NOTE | 2021-07-25 07:20 | NUR ---
RN OPENING NOTE RECEIVED PATIENT IN BED A/O X 4 ON ROOM AIR. NO CURRENT SING OF DISTRESS, PATIENT DENIES ANY PAIN. PATIENT HAS A DIAPER AND IS ON A CLEAR LIQUID DIET. PATIENT AWAITING ONE MORE UNIT OF BLOOD TO BE ADMINISTERED ALONG WITH PLATELETS. PER NIGHT NURSE CALLED LAB AND UNIT NOT READY YET, WILL CALL LAB FOR UPDATE. SCOOBY PICC IN PLACE SL. SAFETY PROTOCOL IN PLACE, BED IN LOWEST POSITION, 2 SIDE RAILS UP AND LOCKED. CALL LIGHT WITHIN REACH.
--- NOTE | 2021-07-25 07:24 | NUR ---
outpatient facility physical therapist Closing Note Patient awake in bed, alert/oriented x 4, pt stable on RA, no s/s of distress or sob noted, breathing even and unlabored. No significant changes throughout shift, medications given as ordered, pt needs met throughout shift. Patient on external residential monitor reading sinus tachy, HR: 123. Safety measures in place: Call light within reach, side rails up x 2, bed locked in low position, bed alarm on. Endorsed to day shift nurse for continuity of care
[2021-07-25 07:47] LABS: CALCIUM, SERUM 7.6 mg/dL (8.5-10.1); POTASSIUM 4.2 mmol/L (3.5-5.1)
[2021-07-25 08:33] LABS: HEMATOCRIT 20 % (39-51)
[2021-07-25] MEDS: PANTOPRAZOLE 40 MG VIAL IV SCH (08:33)
[2021-07-25 08:34] LABS: HEMOGLOBIN 6.9 g/dL (13.5-17.5); PLATELET COUNT (AUTO) 11 K/uL (150-450)
--- NOTE | 2021-07-25 08:57 | NUR ---
lab called in stated platlets 11 and hgb 6.9 after given i units of PRBC last night, orders obtained will give 2 more units of PRBC when avalable was notified re; platelets was not given last night due to not available we will give today. blood bank was notified
[2021-07-25] MEDS: ENSURE CLEAR 237 ML LIQUID (MIX BERRY) PO SCH ×2 (13:00→18:21)
[2021-07-25 13:20] LABS: BAND % (MANUAL) 2 % (0.0-5.0); LYMPHOCYTES % (MANUAL) 28 % (16-48); MONOCYTES % (MANUAL) 6 % (0-11.0); MYELOCYTES % 1 % (0-0); NEUTROPHILS % (MANUAL) 63 (42-76)
[2021-07-25] MEDS: SOD FERRIC GLUC 125 MG in IV NS 0.9% 100 ML IV SCH (14:09)
[2021-07-25] MEDS: EPOETIN ALFA-EPBX 10,000 UNIT/ML VIAL IV SCH (14:40)
[2021-07-25] MEDS: IV NS 0.9% 1,000 ML IV PRN (16:06)
[2021-07-25] MEDS ORDERED: IV NS 0.9% 1,000 ML IV ONE (17:30)
--- NOTE | 2021-07-25 18:00 | NUR ---
RN NOTE CALLED LAB THROUGHOUT SHIFT, REGARDING ORDER OF 1 UNIT OF BLOOD. WAS NOTIFIED THAT BLOOD WILL BE READY AT AROUND 1900. WILL ENDORSE TO NIGHT NURSE.
--- NOTE | 2021-07-25 18:55 | NUR ---
RN CLOSING NOTE PATIENT IN BED A/O X 4 ON ROOM AIR. NO CURRENT SING OF DISTRESS, PATIENT DENIES ANY PAIN. PATIENT HAS A DIAPER AND IS ON A CLEAR LIQUID DIET. PATIENT AWAITING ONE MORE UNIT OF BLOOD TO BE ADMINISTERED PER LAB WILL BE READY AT AROUND 1900 WILL ENDORSE TO NIGHT NURSE.ADMINISTERED PLATELETS AT 1000. [facility] PICC IN PLACE CURRENTLY RUNNING A BOLUS OF NS PER DOCTORS ORDER. ALL MEDICATIONS ORDERED WERE GIVE. SAFETY PROTOCOL IN PLACE, BED IN LOWEST POSITION, 2 SIDE RAILS UP AND LOCKED. CALL LIGHT WITHIN REACH. WILL ENDORSE TO NIGHT NURSE FOR SRINI.
--- NOTE | 2021-07-25 19:15 | NUR ---
BIAS BINDING CUTTER OPENING NOTES RECEIVED PATIENT LAYING AWAKE IN BED. A/O X4. PATIENT WITH REGULAR AND UNLABORED BREATHING ON ROOM AIR TOLERATED WELL. NO DISTRESS NOTED AT THIS TIME. NO COMPLAINS OF PAIN OR DISCOMFORT AT THIS TIME. IV ACCESS SCOOBY PICC LINE RUNNING NS @ 75 ML/HR. IV ACCESS PATENT AND INTACT. SAFETY PRECAUTIONS ENFORCED WITH BED LOCKED AND AT LOWEST POSITION. SIDE RAILS UP X2. CALL LIGHT WITHIN REACH AT ALL TIMES. WILL CONTINUE TO MONITOR PATIENT.
--- NOTE | 2021-07-25 21:05 | NUR ---
COMMODITY MERCHANT NOTES BLOOD TRANSFUSION STARTED. PATIENT TOLERATING WELL. NO SIGNS OF DISCOMFORT.
--- NOTE | 2021-07-25 23:15 | NUR ---
SPIRAL RUNNER NOTES BLOOD TRANSFUSION COMPLETE. PATIENT TOLERATED WELL. NO SIGNS AND SYMPTOMS OF DISCOMFORT.
[2021-07-26] VITALS (11 sets, daily range): BP systolic 92–118; BP diastolic 63–83
[2021-07-26] MEDS: IV NS 0.9% 1,000 ML IV PRN ×2 (00:51→15:47)
--- NOTE | 2021-07-26 07:30 | NUR ---
RN NOTE ON TELE MONITOR CURRENTLY READING SINUS TACHYCARDIA AT 112BPM.
--- NOTE | 2021-07-26 07:30 | NUR ---
SLAT BASKET TOP MAKER OPENING NOTES RECEIVED PATIENT ON BED, AWAKE AND A/O X4. ON ROOM AIR TOLERATING WELL. NO SOB NOTED. NOT IN DISTRESS. WITH NO COMPLAINTS OF PAIN OR DISCOMFORT AT THIS TIME. WITH IV ACCESS AT LEFT UPPER ARM PICC LINE WITH IVF NS AT 75ML/HR INFUSING WELL. IV SITE IS INTACT AND PATENT. SAFETY MEASURES IN PLACED. CALL LIGHT WITHIN REACH. BED ON LOWEST LOCKED POSITION, SIDE RAILS UP X2. WILL CONTINUE TO MONITOR.
--- NOTE | 2021-07-26 07:52 | NUR ---
CHARTER DRIVER CLOSING NOTES PATIENT STILL LAYING AWAKE IN BED. A/O X4. PATIENT WITH REGULAR AND UNLABORED BREATHING ON ROOM AIR TOLERATED WELL. NO DISTRESS NOTED AT THIS TIME. NO COMPLAINS OF PAIN OR DISCOMFORT AT THIS TIME. IV ACCESS SCOOBY PICC LINE RUNNING NS @ 75 ML/HR. IV ACCESS PATENT AND INTACT. SAFETY PRECAUTIONS ENFORCED WITH BED LOCKED AND AT LOWEST POSITION. SIDE RAILS UP X2. CALL LIGHT WITHIN REACH AT ALL TIMES. WILL ENDORSE SRINI TO DAY SHIFT NURSE.
[2021-07-26 08:24] LABS: CALCIUM, SERUM 7.5 mg/dL (8.5-10.1); CREATININE 0.9 mg/dL (0.6-1.3); POTASSIUM 4.1 mmol/L (3.5-5.1)
[2021-07-26 08:49] LABS: BASOPHILS % (AUTO) 0.1 % (0.0-2.0); EOSINOPHILS % (AUTO) 0.2 % (0.0-6.0); HEMATOCRIT 22 % (39-51); HEMOGLOBIN 7.4 g/dL (13.5-17.5); LYMPHOCYTES # (AUTO) 2.2 K/uL (0.8-4.8); LYMPHOCYTES % (AUTO) 15.2 % (20.0-44.0); MEAN CORPUSCULAR HGB CONC 34 g/dl (31.0-36.0); MEAN CORPUSCULAR VOLUME 86 fL (80-96); MONOCYTES # (AUTO) 0.4 K/uL (0.1-1.30); MONOCYTES % (AUTO) 3.1 % (2.0-12.0); NEUTROPHILS # (AUTO) 11.7 K/uL (1.8-8.9); NEUTROPHILS % (AUTO) 81.4 % (43.0-81.0); RED BLOOD CELL COUNT(AUTO) 2.53 MIL/uL (4.5-6.0); WHITE BLOOD COUNT (AUTO) 14.4 K/uL (4.3-11.0)
[2021-07-26] MEDS: PANTOPRAZOLE 40 MG TABLET.DR PO SCH (08:54)
[2021-07-26 08:56] LABS: PLATELET COUNT (AUTO) 31 K/uL (150-450)
[2021-07-26] MEDS: ENSURE CLEAR 237 ML LIQUID (MIX BERRY) PO SCH ×3 (08:57→17:00)
--- NOTE | 2021-07-26 09:30 | NUR ---
WOUND CARE CONSULT: REVIEWED CHART, NURSING DOCUMENTATION AND PHOTO WHICH INDICATES SACRAL SCARRING WHICH EXTENDS TO BUTTOCKS WITH INCONTINENCE/MOISTURE ASSOCIATED SKIN DAMAGE OVER SCARRING, PRESENT ON ADMISSION. RECOMMENDATIONS MADE FOR SKIN PROTECTION. DISCUSSED WITH NURSING STAFF. MD IN AGREEMENT WITH PLAN OF CARE.
[2021-07-26] MEDS ORDERED: FUROSEMIDE 40 MG/4 ML VIAL IV ONE (10:00)
[2021-07-26] MEDS ORDERED: Z GUARD REMEDY 4 OZ OINT TP PRN (10:00)
[2021-07-26] MEDS ORDERED: GUAIFENESIN 300 MG/15 ML UDC PO PRN (10:00)
[2021-07-26 12:01] LABS: BAND % (MANUAL) 4 % (0.0-5.0); EOSINOPHILS % (MANUAL) 2 % (0-4); LYMPHOCYTES % (MANUAL) 10 % (16-48); METAMYELOCYTES % 1 % (0-0); MONOCYTES % (MANUAL) 2 % (0-11.0); MYELOCYTES % 1 % (0-0); NEUTROPHILS % (MANUAL) 80 (42-76)
[2021-07-26] MEDS: Z GUARD REMEDY 4 OZ OINT TP SCH (12:18)
[2021-07-26] MEDS: SOD FERRIC GLUC 125 MG in IV NS 0.9% 100 ML IV SCH (15:37)
[2021-07-26] MEDS: EPOETIN ALFA-EPBX 10,000 UNIT/ML VIAL IV SCH (16:53)
--- NOTE | 2021-07-26 17:48 | NUR ---
RN NOTES PATIENT IS FOR PLATELET TRANSFUSION PER DOCTOR'S ORDER. VITAL SIGNS CHECKED PRE-PLATELET TRANSFUSION. STARTED PLATELET TRANSFUSION AT 60ML/HR FOR 15MINS. WILL CONTINUE TO MONITOR.
--- NOTE | 2021-07-26 19:44 | NUR ---
[facility] CLOSING NOTES PATIENT ON BED, RESTING AND A/O X4. ON O2 AT 2LPM VIA NASAL CANNULA TOLERATING WELL. NO SOB NOTED. NOT IN DISTRESS. WITH NO COMPLAINTS OF PAIN OR DISCOMFORT AT THIS TIME. WITH IV ACCESS AT LEFT UPPER ARM PICC LINE WITH IVF NS AT 75ML/HR INFUSING WELL. IV SITE IS INTACT AND PATENT. STATUS POST PLATELET TRANSFUSION 1U. DUE MEDS GIVEN. SAFETY MEASURES IN PLACED. CALL LIGHT WITHIN REACH. BED ON LOWEST LOCKED POSITION, SIDE RAILS UP X2. WILL ENDORSE TO NEXT SHIFT FOR SRINI.
--- NOTE | 2021-07-26 21:20 | NUR ---
LUNCHROOM MONITOR NOTES: ORDER FOR ATIVAN FOR AGITATION PLACED DUE TO PT PULLING OUT TRACHEOSTOMY TUBINGS
--- NOTE | 2021-07-26 21:30 | NUR ---
PLISSE MACHINE OPERATOR HELPER NOTES: ATIVAN 0.5 ML GIVEN FOR AGITATION AND PULLING OUT TRACHEOSTOMY TUBINGS REPEATEDLY.
--- NOTE | 2021-07-26 21:52 | NUR ---
CHEMICAL DEPENDENCY THERAPIST OPENINGS NOTES: RECEIVED PATIENT FROM DAY SHIFT, PATIENT IN BED, A/O X4, TELE MONITOR SHOWS SINUS TACHY 112-115 BPM, ON ROOM AIR, SATURATING 95%, NO SIGNS OF SOB, NO DISTRESS NOTED, SCOOBY PICC LINE PATENT AND INTACT, RUNNING NS AT 75 ML/HR, BED AT LOWEST POSITION, BRAKES LOCKED AND IN PLACE, CALL LIGHT WITHIN REACH, SIDE RAILS UP X2, WILL CONTINUE TO MONITOR AND ADMINISTER NURSING INTERVENTIONS NEEDED.
[2021-07-27] VITALS: BP 98/69
[2021-07-27 04:00] VITALS: BP 95/67
--- NOTE | 2021-07-27 06:34 | NUR ---
SINTER FEEDER CLOSING NOTES: PATIENT IN BED, A/O X4, TELE MONITOR SHOWS SINUS TACHY 112-115, SCOOBY PICC LINE PATENT AND INTACT, RUNNING NS AT 75 ML/HR, ON NC 2L, SATURATING 95%, NO SIGNS OF SOB, NO DISTRESS NOTED, BED AT LOWEST POSITION, BRAKES LOCKED AND IN POSITION, SIDE RAILS UP X2, CALL LIGHT WITHIN REACH, WILL CONTINUE TO MONITOR AND IMPLEMENT NURSING INTERVENTIONS NEEDED. WILL ENDORSE TO DAY SHIFT NURSE.
--- NOTE | 2021-07-27 07:39 | NUR ---
RN OPENINGS NOTES: RECEIVED PATIENT FROM COMMERCIAL FISHER, PATIENT IN BED, A/O X4, ON ROOM AIR, SATURATING 95%, NO SIGNS OF SOB, NO DISTRESS NOTED, SCOOBY PICC LINE PATENT AND INTACT, RUNNING NS AT 75 ML/HR, ALL SAFETY MEASURES IN PLACE, BED AT LOWEST LOCKED POSITION, CALL LIGHT WITHIN REACH, SIDE RAILS UP X2, WILL CONTINUE TO MONITOR THROUGHOUT SHIFT.
[2021-07-27 08:00] VITALS: BP 140/70
[2021-07-27] MEDS: ENSURE CLEAR 237 ML LIQUID (MIX BERRY) PO SCH ×3 (08:16→17:11)
[2021-07-27] MEDS: PANTOPRAZOLE 40 MG TABLET.DR PO SCH (08:16)
[2021-07-27] MEDS: Z GUARD REMEDY 4 OZ OINT TP SCH (08:16)
[2021-07-27 08:20] LABS: EOSINOPHILS % (AUTO) 0.2 % (0.0-6.0); HEMATOCRIT 21 % (39-51); LYMPHOCYTES # (AUTO) 1.5 K/uL (0.8-4.8); LYMPHOCYTES % (AUTO) 14.6 % (20.0-44.0); MEAN CORPUSCULAR HGB CONC 34 g/dl (31.0-36.0); MEAN CORPUSCULAR VOLUME 87 fL (80-96); MONOCYTES # (AUTO) 0.3 K/uL (0.1-1.30); MONOCYTES % (AUTO) 2.9 % (2.0-12.0); NEUTROPHILS # (AUTO) 8.4 K/uL (1.8-8.9); NEUTROPHILS % (AUTO) 82.3 % (43.0-81.0); PLATELET COUNT (AUTO) 52 K/uL (150-450); RED BLOOD CELL COUNT(AUTO) 2.37 MIL/uL (4.5-6.0); WHITE BLOOD COUNT (AUTO) 10.2 K/uL (4.3-11.0)
[2021-07-27 09:00] LABS: CALCIUM, SERUM 7.4 mg/dL (8.5-10.1); CREATININE 0.9 mg/dL (0.6-1.3); MAGNESIUM 1.9 mg/dL (1.8-2.4); POTASSIUM 4.1 mmol/L (3.5-5.1)
--- NOTE | 2021-07-27 09:30 | NUR ---
RN NOTES NOTIFIED MD OF PT HGB LEVEL OF 7.0 AWAITING ORDERS.
[2021-07-27 11:48] LABS: BAND % (MANUAL) 1 % (0.0-5.0); LYMPHOCYTES % (MANUAL) 14 % (16-48); MONOCYTES % (MANUAL) 4 % (0-11.0); NEUTROPHILS % (MANUAL) 81 (42-76)
[2021-07-27 12:00] VITALS: BP 102/35
[2021-07-27] MEDS: SOD FERRIC GLUC 125 MG in IV NS 0.9% 100 ML IV SCH (14:32)
[2021-07-27] MEDS: EPOETIN ALFA-EPBX 10,000 UNIT/ML VIAL IV SCH (15:39)
[2021-07-27 16:00] VITALS: BP 110/70
--- NOTE | 2021-07-27 18:37 | NUR ---
RN NOTES SPOKE WITH CASE MANAGEMENT, THEY ARE NOW IN CONTACT WITH INOCENCIA CUMMINS COLORECTAL SURGEON. CASE MANAGEMNT IS WAITING TO GET CONFIRMATION ON OPEN BED. WILL ENDORSE TO DAIRY TESTER NURSE.
--- NOTE | 2021-07-27 18:55 | NUR ---
RN CLOSING NOTES PATIENT IN BED, A/O X4, PT HAS L UA PICC LINE PATENT AND INTACT, RUNNING NS AT 75 ML/HR, ON NC 2L, SATURATING 95%, PATIENT TOLERATED ALL INTERVENTIONS, NO SIGNS OF SOB, NO DISTRESS NOTED AT THIS TIME. ALL SAFETY MEASURES IN PLACE, BED IN LOWEST LOCKED POSITION, SIDE RAILS UP X2, CALL LIGHT WITHIN REACH. WILL ENDORSE TO PECAN CLEANER NURSE FOR SRINI.
--- NOTE | 2021-07-27 19:30 | NUR ---
RN NOTE PT RECEIVED IN BED. PT IS ON 2L OF O2 VIA NC SHOWING NO S/S OF RESP DISTRESS. PT IS ALERT AND ORIENTED X4. ON INSTRUMENTATION SUPERVISOR SHOWING ST. SACRAL WOUND NOTED. ON CLEAR LIQUID DIET. LEFT UPPER ARM PICC NOTED. LINE FLUSHED, PATENT, AND INTACT WITH NO SIGNS OF INFILTRATION. WILL CLOSELY MONITOR FOR ANY ACTIVE BLEEDING AND CHANGES IN STAT HG/HCT DRAW. ALL SAFETY MEASURES IMPLEMENTED. CALL LIGHT WITHIN REACH. BED ALARM ON. BED LOCKED AND IN LOWEST POSITION. SIDE RAILS UP. WILL CONTINUE TO MONITOR AND ASSESS FOR ANY CHANGES DURING SHIFT.
[2021-07-27 20:00] VITALS: BP 95/65
[2021-07-27 23:08] LABS: HEMOGLOBIN 7.8 g/dL (13.5-17.5)
[2021-07-27] MEDS: IV NS 0.9% 1,000 ML IV PRN (23:09)
[2021-07-28] VITALS (9 sets, daily range): BP systolic 90–108; BP diastolic 65–72
--- NOTE | 2021-07-28 06:39 | NUR ---
RN NOTE NO CHANGES IN PT CONDITION DURING SHIFT. PT IS ON 2L OF O2 VIA NC SHOWING NO S/S OF RESP DISTRESS. PT IS ALERT AND ORIENTED X4. ON TECHNICAL TRAINING MANAGER SHOWING ST. LEFT UPPER ARM PICC NOTED. LINE FLUSHED, PATENT, AND INTACT WITH NO SIGNS OF INFILTRATION. PT HAD SMALL AMOUNT OF BLOOD IN STOOL, RECENT HG WAS 7.8. ALL DUE MEDS GIVEN ORDERED. PT KEPT CLEAN AND COMFORTABLE. ALL SAFETY MEASURES IMPLEMENTED. CALL LIGHT WITHIN REACH. BED ALARM ON. BED LOCKED AND IN LOWEST POSITION. SIDE RAILS UP. WILL ENDORSE TO MORNING SHIFT RN FOR SRINI.
--- NOTE | 2021-07-28 07:00 | NUR ---
RN NOTE REPORT REC'D AT BEDSIDE FROM TEMITOPE ROGER. PT IS AWAKE, ALERT, OX4. NO SOB. IN NO APPARENT RESPIRATORY DISTRESS. DENIES ANY PAIN. C/O NO BM SINCE ADMISSION. RH IV IS PATENT, DRG INTACT. SAFETY AND ISOLATION PRECAUTION OBSERVED. CALL LIGHT WITHIN REACH. WILL CONT. TO MONITOR. Addendum: 07/28/21 at 0734 by DARBY AMARAL RN RN NOTE ABOVE NOTE: ERROR ENTRY
--- NOTE | 2021-07-28 07:10 | NUR ---
RN NOTE REPORT REC'D AT BEDSIDE FR ACACIA LINN. PT IS AWAKE,ALERT,OX3. IN NO ACUTE DISTRESS. BREATHING EVEN AND UNLABORED. ON 2 LPM NC TOLERATING WELL. PT DENIES ANY DISCOMFORT AT THIS TIME. ST 103 ON TELE MONITOR. SCOOBY PICC PATENT DRG INTACT. WITH NS INFUSING AT 75 CC/HR. SAFETY AND ISOLATION OBSERVED. WILL CONT TO MONITOR.
[2021-07-28] MEDS: ENSURE CLEAR 237 ML LIQUID (MIX BERRY) PO SCH ×3 (08:13→17:11)
[2021-07-28] MEDS: Z GUARD REMEDY 4 OZ OINT TP SCH (08:14)
[2021-07-28] MEDS: PANTOPRAZOLE 40 MG TABLET.DR PO SCH (08:30)
[2021-07-28 08:46] LABS: BASOPHILS % (AUTO) 0.2 % (0.0-2.0); EOSINOPHILS % (AUTO) 0.4 % (0.0-6.0); HEMATOCRIT 22 % (39-51); HEMOGLOBIN 7.3 g/dL (13.5-17.5); LYMPHOCYTES # (AUTO) 1.9 K/uL (0.8-4.8); LYMPHOCYTES % (AUTO) 23.5 % (20.0-44.0); MEAN CORPUSCULAR HGB CONC 33 g/dl (31.0-36.0); MEAN CORPUSCULAR VOLUME 88 fL (80-96); MONOCYTES # (AUTO) 0.3 K/uL (0.1-1.30); MONOCYTES % (AUTO) 3.6 % (2.0-12.0); NEUTROPHILS # (AUTO) 5.9 K/uL (1.8-8.9); NEUTROPHILS % (AUTO) 72.3 % (43.0-81.0); RED BLOOD CELL COUNT(AUTO) 2.51 MIL/uL (4.5-6.0); WHITE BLOOD COUNT (AUTO) 8.2 K/uL (4.3-11.0)
[2021-07-28 09:14] LABS: PLATELET COUNT (AUTO) 25 K/uL (150-450)
--- NOTE | 2021-07-28 09:20 | NUR ---
RN NOTE REC'D CALL FR MARSHALL/LAB RE: CRITICAL LAB VALUE OF PLT 25. DR. DAWN NOTIFIED.
[2021-07-28] MEDS ORDERED: EPOETIN ALFA-EPBX 10,000 UNIT/ML VIAL IV ONE (11:00)
--- NOTE | 2021-07-28 11:02 | NUR ---
RN NOTE PT AWAKE. NO SOB. AGREED FOR AM CARE. NOTED TO HAVE BROWNISH SEMI LIQUID WITH STREAKS OF BLOOD BM. SACRAL WOUND TREATMENT DONE OREDERED. MADE COMFORTABLE. WILL CONTINUE TO MONITOR. AWAITING FOR PLATELETS AVAILABILTY.
[2021-07-28] MEDS: IV NS 0.9% 1,000 ML IV PRN (11:28)
[2021-07-28 13:34] LABS: THYROID STIMULATING HORMONE 3.457 uIU/mL (0.358-3.74)
[2021-07-28 14:21] LABS: D-DIMER 35.2 mg/L(FEU (0.17-0.50)
--- NOTE | 2021-07-28 14:27 | NUR ---
RN NOTE CRITICAL LAB VALUE FIBRINOGEN [address] DAWN.
[2021-07-28] MEDS: SOD FERRIC GLUC 125 MG in IV NS 0.9% 100 ML IV SCH (15:04)
--- NOTE | 2021-07-28 16:17 | NUR ---
fibrinogen 88 dr[address] maharaj ordered cryoprecipitate 10 units,blood bank notified and ordered 2 quantity r/t 1 quantity is equivalent to 5 units.awaits blood.
[2021-07-28] MEDS ORDERED: PHYTONADIONE INJ 10 MG/1 ML AMPUL SQ ONE (16:30)
[2021-07-28] MEDS: CEFEPIME 2 GM in IV D5W 100 ML IV SCH (17:10)
[2021-07-28] MEDS ORDERED: PEG 3350/NA SULF,BICARB,CL/KCL 4,000 ML BOTTLE PO ONE (18:00)
--- NOTE | 2021-07-28 18:36 | NUR ---
RN NOTE PT AWAKE, NOSOB. DENIES PAIN. PRETRANSFUSION V/S TAKEN AND RECORDED. STARTED PLATELETS TO INFUSE FOR 1 HR. NO TRANSFUSION REACTIONS NOTED.
--- NOTE | 2021-07-28 18:55 | NUR ---
PT DENIES ANY COMPLAINTS. PLATELETS TRANSFUSING WITHOUT ANY REACTIONS. V/S TAKEN AND RECORDED.
--- NOTE | 2021-07-28 18:56 | NUR ---
RN NOTE CONSENT FOR COLONOSCOPY OBTAINED. INSTRUCTED PT TO NOT EAT/DRINK POST MIDNIGHT AND TO DRINK HALF A GALLOON OF GOLYTELY. PT VERBALIZED UNDERSTANDING.
--- NOTE | 2021-07-28 19:10 | NUR ---
RN OPENING NOTES RECEIVED PATIENT ONBED ALERT AND VERBALLY RESPONSIVE. PATIENT IS ON 2L/MIN NC AND O2 SAT 98%, NO SOB NOTED, MO S/S OF DISTRESS NOTED. PATIENT WITH SCOOBY PICC LINE RUNNING WITH NS @75ML/HR. ALL SAFETY MEASURE IN PLACE. BED ON LOWEST POSITION, LOCKED BED ALARM ARMED. CALL LIGHT WITHIN REACH. WILL CONTINUE TO MONITOR
--- NOTE | 2021-07-28 19:18 | NUR ---
RN NOTE PT CONDITION REMAINS THE SAME. NO ACTIVE BLEEDING. NO SOB. NO C/O PAIN. ALL DUE MEDS GIVEN SCHEDULED. PLATELETS IN PROGRESS WITHOUT ANY REACTIONS. V/S STABLE. SAFETY MEASURES OBSERVED. CALL LIGHT WITHIN REACH. ENDORSED TO JOSHUA ROGER FOR SRINI.
--- NOTE | 2021-07-28 19:36 | NUR ---
RN NOTES PLATELETS TRANSFUSION DONE, NO ADVERSE REACTION NOTED, NO BLEEDING NOTED.
--- NOTE | 2021-07-28 22:40 | NUR ---
RN NOTES PATIENT REFUSED TO TAKE THE GOLYTELY PEG 3350 AND ELECTROLYTES, OFFERED MULTIPLE TIMES, EXPLAINED RISK AND BENEFITS , STILL REFUSED. CALLED DR. VELIZ'S OFFICE UNABLE TO REACH AT THIS TIME, LEFT MESSAGE, WAITING FOR CALL BACK.
[2021-07-29] VITALS (8 sets, daily range): BP systolic 92–112; BP diastolic 60–77
--- NOTE | 2021-07-29 00:35 | NUR ---
RN NOTES CALLED DR. VELIZ'S OFFICE AGAIN UNABLE TO REACH AT THIS TIME, LEFT MESSAGE, WAITING FOR CALL BACK.
[2021-07-29] MEDS: CEFEPIME 2 GM in IV D5W 100 ML IV SCH ×3 (01:09→16:24)
--- NOTE | 2021-07-29 02:30 | NUR ---
RN NOTES NOTIFIED UTILIZATION MANAGEMENT NURSE LAUREANO, REGARDING PATIENT REFUSING TO TAKE THE GOLITELY, NO NEW ORDER AT THIS TIME.
--- NOTE | 2021-07-29 03:15 | NUR ---
RN NOTES PT AWAKE, NO SOB. DENIES PAIN. PRE TRANSFUSION V/S TAKEN AND RECORDED. STARTED CRYOPRECIPITATE TO INFUSE FOR 20- 30MINS. NO TRANSFUSION REACTIONS NOTED.
--- NOTE | 2021-07-29 03:40 | NUR ---
RN NOTES CRYOPRECIPITATE TRANSFUSION DONE, NO ADVERSE REACTION NOTED, NO BLEEDING NOTED, PT. REMAIN STABLE.
[2021-07-29] MEDS: IV NS 0.9% 1,000 ML IV PRN (06:00)
[2021-07-29 06:11] LABS: BILIRUBIN,URINE NEGATIVE (NEGATIVE); COLOR,URINE YELLOW (YELLOW); LEUKOCYTE ESTERASE ,URINE NEGATIVE (NEGATIVE); NITRITE, URINE NEGATIVE (NEGATIVE); PROTEIN,URINE NEGATIVE (NEGATIVE); UGLUCOSE NEGATIVE (NEGATIVE); UROBILINOGEN,URINE 0.2 EU/dL (0.2)
--- NOTE | 2021-07-29 06:50 | NUR ---
RN NOTES RECEIVED CALL BACK FROM DR. VELIZ, PER DR. VELIZ, HE WILL TALK TO DR. DAWN FIRST REGARDING PLAN FOR COLONOSCOPY.
--- NOTE | 2021-07-29 07:20 | NUR ---
RN CLOSING NOTES PATIENT REMAIN STABLE THROUGH OUT THE NIGHT. PATIENT IS ON 2L/MIN NC AND O2 SAT 98%, NO SOB NOTED, MO S/S OF DISTRESS NOTED. PATIENT WITH SCOOBY PICC LINE RUNNING WITH NS @75ML/HR. ALL DUE MEDS GIVEN ORDERED. ALL SAFETY MEASURE IN PLACE. BED ON LOWEST POSITION, LOCKED BED ALARM ARMED. CALL LIGHT WITHIN REACH. WILL CONTINUE TO MONITOR
[2021-07-29 07:25] LABS: CALCIUM, SERUM 7.3 mg/dL (8.5-10.1); CREATININE 0.9 mg/dL (0.6-1.3)
[2021-07-29] MEDS ORDERED: DEXTROSE 50%-WATER 50 ML DISP.SYRIN IVP ONE (07:45)
--- NOTE | 2021-07-29 07:48 | NUR ---
RN NOTE RECEIVED CRITICAL LAB OF GLUCOSE 44, HGB 6.6 AND PLATELETS [address]. REPORTED TO DR. DAWN
--- NOTE | 2021-07-29 07:55 | NUR ---
RN OPENING NOTE PT IS AWAKE,ALERT,OX3. IN NO ACUTE DISTRESS. BREATHING EVEN AND UNLABORED. ON 2 LPM NC TOLERATING WELL. PT DENIES ANY DISCOMFORT AT THIS TIME. ST 103 ON TELE MONITOR. SCOOBY PICC PATENT DRG INTACT. WITH NS INFUSING AT 75 CC/HR. SAFETY PROTOCOL IN PLACE, BED IN THE LOWEST POSITION, CALL LIGHT WITHIN REACH AND 2 SIDE RAILS IP.
[2021-07-29] MEDS: PANTOPRAZOLE 40 MG TABLET.DR PO SCH (07:59)
[2021-07-29] MEDS: ENSURE CLEAR 237 ML LIQUID (MIX BERRY) PO SCH ×3 (08:00→18:00)
[2021-07-29] MEDS: IV D5/ 0.9% NACL 1,000 ML IV SCH ×3 (08:06→23:26)
[2021-07-29] MEDS: Z GUARD REMEDY 4 OZ OINT TP SCH (08:18)
[2021-07-29 08:47] LABS: D-DIMER 35.2 mg/L(FEU (0.17-0.50)
[2021-07-29 09:15] LABS: BASOPHILS % (AUTO) 0.1 % (0.0-2.0); EOSINOPHILS % (AUTO) 0.1 % (0.0-6.0); LYMPHOCYTES # (AUTO) 1.3 K/uL (0.8-4.8); LYMPHOCYTES % (AUTO) 16.3 % (20.0-44.0); MEAN CORPUSCULAR HGB CONC 33 g/dl (31.0-36.0); MEAN CORPUSCULAR VOLUME 90 fL (80-96); MONOCYTES # (AUTO) 0.2 K/uL (0.1-1.30); MONOCYTES % (AUTO) 2.3 % (2.0-12.0); NEUTROPHILS # (AUTO) 6.4 K/uL (1.8-8.9); NEUTROPHILS % (AUTO) 81.2 % (43.0-81.0); PLATELET COUNT (AUTO) 59 K/uL (150-450); RED BLOOD CELL COUNT(AUTO) 2.14 MIL/uL (4.5-6.0); WHITE BLOOD COUNT (AUTO) 7.9 K/uL (4.3-11.0)
[2021-07-29 09:18] LABS: HEMATOCRIT 19 % (39-51); HEMOGLOBIN 6.3 g/dL (13.5-17.5)
[2021-07-29] MEDS ORDERED: IOHEXOL-300 100 ML VIAL IV ONE (09:59)
[2021-07-29] MEDS ORDERED: CT SWABBABLE VALVE TRANS SET 1 EA INFUS.SET MC ONE (10:00)
[2021-07-29] MEDS ORDERED: IV NS 0.9% 250 ML IV ONE (10:00)
[2021-07-29] MEDS ORDERED: ACETAMINOPHEN 325 MG TABLET PO ONE (10:30)
[2021-07-29] MEDS: ALBUMIN 25% 25 GM in PREMIX 1 EA IV SCH ×2 (12:09→23:22)
[2021-07-29] MEDS: EPOETIN ALFA-EPBX 10,000 UNIT/ML VIAL IV SCH (14:32)
[2021-07-29] MEDS: SOD FERRIC GLUC 125 MG in IV NS 0.9% 100 ML IV SCH (15:09)
--- NOTE | 2021-07-29 17:34 | NUR ---
RN NOTE CALLED LAB REGARDING ORDER FOR PLATELETS, RBC AND CRYOPRECIPITATE. PER BLOOD BANK PRODUCTS HAVE NOT ARRIVED. Addendum: 07/29/21 at 1736 by RIDDHI SELLESR RN Amended: Links added.
--- NOTE | 2021-07-29 18:40 | NUR ---
RN CLOSING NOTE PT IS AWAKE,ALERT,OX4. IN NO ACUTE DISTRESS. BREATHING EVEN AND UNLABORED. ON 2 LPM NC TOLERATING WELL. PT DENIES ANY DISCOMFORT AT THIS TIME. ST 114 ON TELE MONITOR. SCOOBY PICC PATENT DRG INTACT RUNNING D5 IN 09%NS INFUSING AT 100 CC/HR. SCHEDULED MEDICATIONS GIVEN, PENDING PLATELETS, RBC AND CRYOPRECIPITATE BLOOD BANK INFORMED. PATIENT IS SCHEDULED TO HAVE A COLONOSCOPY TOMORROW CONSENT HAS BEEN SIGNED AND IN CHART. PATIENT IS TO BE KEPT NPO AFTER DINNER. SAFETY PROTOCOL IN PLACE, BED IN THE LOWEST POSITION, CALL LIGHT WITHIN REACH AND 2 SIDE RAILS. WILL ENDORSE TO NIGHT NURSE FOR SRINI.
[2021-07-29 19:03] LABS: BAND % (MANUAL) 6 % (0.0-5.0); LYMPHOCYTES % (MANUAL) 14 % (16-48); NEUTROPHILS % (MANUAL) 80 (42-76)
--- NOTE | 2021-07-29 19:20 | NUR ---
RN NOTE RECEIVED PATINET IN BED RESTING ALERT ORIENTED X4 VERBALLY RESPONSIVE ON 2L OXYGEN VIA NASAL CANNULA O2:98% IV SITE IS ON RIGHT UPPER ARM PICC LINE INTACT PATENT ON IV HYDRATION D5NS 100CC/HR,SAFETY MEASURE IMPLEMENT BED IN LOW POSITON AND LOCKED CALL LIGHT WITHIN REACH CONTINUE TO MONITOR.
[2021-07-29 23:36] LABS: HEMOGLOBIN 6.3 g/dL (13.5-17.5)
--- NOTE | 2021-07-29 23:52 | NUR ---
RN NOTE RECEIVED A CALL FROM LAB PATIENT HEMOGLOBIN IS 6.3 AND HEMATOCRIT IS 19 PATIENT HAS ONE RED BLOOD CELLS ORDER BUT ONLY BLOOD AVAILABLE IS O POSITIVE AND PATIENT'S BLOOD IS O NEGATIVE CALLED DR NEREYDA FLORES HE SAID WHEN BLOOD AVAILABLE WE WILL GIVE.
[2021-07-30] VITALS (9 sets, daily range): BP systolic 96–110; BP diastolic 61–92
--- NOTE | 2021-07-30 | NUR ---
RN NOTE KEEP PATIENT NPO AFTER MIDNIGHT CONTINUE TO MONITOR.
[2021-07-30] MEDS: CEFEPIME 2 GM in IV D5W 100 ML IV SCH ×3 (00:34→17:00)
--- NOTE | 2021-07-30 06:57 | NUR ---
RN NOTE PATIENT REMAINS ALERT ORIENTED X4 VERBALLY RESPONSIVE NO SOB NOT ACUTE DISTRESS NOTED ON 2L OXYGEN VIA NASAL CANNULA O2;99% ALL DUE MEDS GIVEN MD ORDERED ENDORSE NEXT COMING SHIFT FOR CONTINUATION OF CARE
[2021-07-30 07:13] LABS: ALBUMIN 1.7 g/dL (3.4-5.0); BILIRUBIN,TOTAL 0.6 mg/dL (0.2-1.0); CALCIUM, SERUM 7.1 mg/dL (8.5-10.1); CREATININE 0.8 mg/dL (0.6-1.3); TOTAL PROTEIN, SERUM 4.4 g/dL (6.4-8.2)
[2021-07-30] MEDS: ENSURE CLEAR 237 ML LIQUID (MIX BERRY) PO SCH ×3 (08:00→18:00)
[2021-07-30] MEDS: PANTOPRAZOLE 40 MG VIAL IV SCH (08:47)
[2021-07-30 09:03] LABS: D-DIMER > 35.20 mg/L(FEU (0.17-0.50)
[2021-07-30] MEDS: Z GUARD REMEDY 4 OZ OINT TP SCH (09:49)
[2021-07-30 10:30] LABS: BASOPHILS % (AUTO) 0.1 % (0.0-2.0); EOSINOPHILS % (AUTO) 0.3 % (0.0-6.0); LYMPHOCYTES # (AUTO) 1.1 K/uL (0.8-4.8); LYMPHOCYTES % (AUTO) 15.1 % (20.0-44.0); MEAN CORPUSCULAR HGB CONC 33 g/dl (31.0-36.0); MEAN CORPUSCULAR VOLUME 91 fL (80-96); MONOCYTES # (AUTO) 0.2 K/uL (0.1-1.30); MONOCYTES % (AUTO) 2.8 % (2.0-12.0); NEUTROPHILS # (AUTO) 5.8 K/uL (1.8-8.9); NEUTROPHILS % (AUTO) 81.7 % (43.0-81.0); RED BLOOD CELL COUNT(AUTO) 2.12 MIL/uL (4.5-6.0); WHITE BLOOD COUNT (AUTO) 7.2 K/uL (4.3-11.0)
[2021-07-30] MEDS ORDERED: ACETAMINOPHEN 325 MG TABLET PO ONE ×2 (10:30)
--- NOTE | 2021-07-30 10:30 | NUR ---
RN NOTE NP. PORTILLO NOTIFIED OF PLATELET 27, FIBRINOGEN 61 AND HGB OF 6.3 AND HCT OF 1.8. RBC ORDERED.
[2021-07-30 10:38] LABS: HEMATOCRIT 19 % (39-51); HEMOGLOBIN 6.3 g/dL (13.5-17.5); PLATELET COUNT (AUTO) 27 K/uL (150-450)
--- NOTE | 2021-07-30 13:57 | NUR ---
RN NOTE PER ULTRASOUND PT HAS R IJV DVT. TEE Alberto NOTIFIED
[2021-07-30] MEDS: IV D5/ 0.9% NACL 1,000 ML IV SCH ×2 (14:00→23:51)
--- NOTE | 2021-07-30 14:27 | NUR ---
RN NOTE PER SURGERY PT WILL NEED 2 UNITS OF PLATELETS PRIOR TO COLONOSCOPY PROCEDURE. SPOKE WITH BLOOD BANK INDICATING THAT THEY ONLY HAVE 1 UNIT AVAILABLE AND WILL CALL US WHEN ITS READY. THEY WILL ALSO CALL IF PLASMA AND PRBC ARE READY.
[2021-07-30] MEDS: EPOETIN ALFA-EPBX 10,000 UNIT/ML VIAL IV SCH (15:37)
[2021-07-30] MEDS: SOD FERRIC GLUC 125 MG in IV NS 0.9% 100 ML IV SCH (16:39)
[2021-07-30] MEDS ORDERED: ANESTHESIA TRAY IN PYXIS 1 EA TRAY MC ONE (17:07)
[2021-07-30 18:23] LABS: BAND % (MANUAL) 7 % (0.0-5.0); LYMPHOCYTES % (MANUAL) 15 % (16-48); MONOCYTES % (MANUAL) 3 % (0-11.0); NEUTROPHILS % (MANUAL) 75 (42-76)
--- NOTE | 2021-07-30 19:11 | NUR ---
RN NOTE SPOKE WITH DR. VALDERRAMA, PER DR. VALDERRAMA HGB IS 6.3 AND WILL NOT PROCEED WITH COLONOSCOPY FOR TODAY. ONCE PRBC'S ARE GIVEN AN ELECTIVE COLONOSCOPY WILL BE DONE. SPOKE TO SURGERY TO PLACE PT ON PREVIOUS DIET
--- NOTE | 2021-07-30 19:20 | NUR ---
RN NOTE RECEIVED PATIENT RESTING ALERT ORIENTED X4 ON 2L OXYGEN VIA NASAL CANNULA O2:99% PREVIOUS NURSE REPORT COLONOSCOPY NOT DONE BECAUSE HGB IS 6.3 AND BLOOD NOT AVAILABLE TO GIVE,DR NOTIFIED,AND AWARE.IV SITE IS ON LEFT UPPER ARM PICC LINE INTACT PATENT IV HYDRATION D5NS 100CC/HR RUNNING,SAFETY MEASURE IMPLEMENT,CALL LIGHT WITHIN REACH,CONTINUE TO MONITOR.
--- NOTE | 2021-07-30 20:34 | NUR ---
RN NOTE CALLED BLOOD BANK AND SPOKE WITH DONATO SHE SAID BLOOD FOR THIS PATIENT IS NOT AVAILABLE,CONTINUE TO MONITOR.
[2021-07-31] VITALS: BP 105/71
[2021-07-31] MEDS: CEFEPIME 2 GM in IV D5W 100 ML IV SCH ×3 (00:18→16:44)
--- NOTE | 2021-07-31 02:10 | NUR ---
RN NOTES PATIENT WAS ENDORSED IN STABLE CONDITIONS. PATIENT IS CURRENTLY IN BED, AWAKE, A/O X4. ON 2L OXYGEN VIA NC, O2 SAT IS 98% AT THUS TIME, NO SOB NOTED. NO SIGNIFICANT FINDINGS UPON INITIAL NURSING ASSESSMENTS. IV ACCESS IS NOTED ON LEFT UPPER ARM PICC LINE, IV IS INTACT AND PATENT WITH D5NS 100CC/HR RUNNING. ALL SAFETY MEASURES IMPLEMENTED. WILL CONTINUE TO MONITOR PATIENT.
--- NOTE | 2021-07-31 02:13 | NUR ---
RN NOTE REPORT GIVEN TO ENZO ROGER FOR CONTINUATION OF CARE.
[2021-07-31 04:00] VITALS: BP 108/69
--- NOTE | 2021-07-31 07:27 | NUR ---
RN CLOSING NOTES ENDORSED PATIENT IN STABLE CONDITIONS. PATIENT IS CURRENTLY IN BED, AWAKE, A/O X4, ABLE TO VERBALIZE NEEDS. ON 2L OXYGEN VIA NC, O2 SAT IS 99% AT THIS TIME, NO SOB NOTED. NO SIGNIFICANT FINDINGS UPON ALL NURSING ASSESSMENTS. PATIENT HAD A BOWEL MOVEMENT, BLOODY STOOL WAS NOTED. SACRAL REDNESS NOTED, Z GUARD AND MEPILEX APPLIED, KEPT CLEAN AND DRY. IV ACCESS IS NOTED ON LEFT UPPER ARM PICC LINE, IV IS INTACT AND PATENT WITH D5NS 100CC/HR RUNNING. ALL SAFETY MEASURES IMPLEMENTED. ENDORSED PATIENT TO DAY SHIFT NURSE FOR SRINI.
--- NOTE | 2021-07-31 07:30 | NUR ---
RN OPENING NOTES RECEIVED PATIENT IN STABLE CONDITIONS. PATIENT IS CURRENTLY IN BED, AWAKE, A/O X4, ABLE TO VERBALIZE NEEDS. ON 2L OXYGEN VIA NC, O2 SAT IS 99% AT THIS TIME, NO SOB NOTED. NO SIGNIFICANT FINDINGS UPON ALL NURSING ASSESSMENTS.IV ACCESS IS NOTED ON LEFT UPPER ARM PICC LINE, IV IS INTACT AND PATENT WITH D5NS 100CC/HR RUNNING. ALL SAFETY MEASURES IMPLEMENTED.WILL SRINI.
[2021-07-31 08:00] VITALS: BP 99/76
[2021-07-31] MEDS: ENSURE CLEAR 237 ML LIQUID (MIX BERRY) PO SCH ×3 (08:39→17:22)
[2021-07-31] MEDS: PANTOPRAZOLE 40 MG VIAL IV SCH (09:19)
[2021-07-31] MEDS: Z GUARD REMEDY 4 OZ OINT TP SCH (09:20)
[2021-07-31] MEDS: IV D5/ 0.9% NACL 1,000 ML IV SCH ×2 (09:20→21:49)
--- NOTE | 2021-07-31 10:38 | NUR ---
RN OPENING NOTES RECEIVED PATIENT IN STABLE CONDITIONS. PATIENT IS CURRENTLY IN BED, AWAKE, A/O X4, ABLE TO VERBALIZE NEEDS. ON 2L OXYGEN VIA NC, O2 SAT IS 99% AT THIS TIME, NO SOB NOTED. NO SIGNIFICANT FINDINGS UPON ALL NURSING ASSESSMENTS.IV ACCESS IS NOTED ON LEFT UPPER ARM PICC LINE, IV IS INTACT AND PATENT WITH D5NS 100CC/HR RUNNING. ALL SAFETY MEASURES IMPLEMENTED.WILL SRINI. Addendum: 07/31/21 at 1041 by HILARIO DIAZ RN TIME ERROR
[2021-07-31 12:00] VITALS: BP 106/68
[2021-07-31 13:06] LABS: D-DIMER > 35.20 mg/L(FEU (0.17-0.50)
[2021-07-31] MEDS: SOD FERRIC GLUC 125 MG in IV NS 0.9% 100 ML IV SCH (14:36)
[2021-07-31] MEDS: EPOETIN ALFA-EPBX 10,000 UNIT/ML VIAL IV SCH (14:37)
[2021-07-31 16:00] VITALS: BP 92/66
--- NOTE | 2021-07-31 16:28 | NUR ---
RN NOTE FOLLOW UP FOR LAB, STILL PENDING AT THIS TIME.
--- NOTE | 2021-07-31 17:00 | NUR ---
RN NOTE REPORT HGB 5.0, HTC 15 AND PLT 46 TO MD ATUL WYATT. AND CHARGE NURSE RASHID. ATUL WYATT ORDERED URGENT REQUEST FOR 2 UNIT PRBC. I CALLED BLOOD BANK TALK TO ANEUDY, TO DO FULL CROSS AND MATCH BECAUSE THE THE ONLY BLOOD AVAILABLE IS O POSITIVE. PT IS ALERT AND ORIENTED X4, EXPLAIN THE RISK OF SEVER LIFE THREATENING ANEMIA AND THE RISK OF TRANSFUSION REACTION, PT GAVE CONSENT VERBALLY AND WRITTEN AND SIGNED THE CONSENT. AND PT IS AWARE OF ONLY O POSITIVE BLOOD AVAILABLE. EXPLAIN TO PT THAT WILL PREMEDICATE BEFORE TRANSFUSION PER MD ORDER. .
[2021-07-31 17:19] LABS: BASOPHILS % (AUTO) 0.3 % (0.0-2.0); EOSINOPHILS % (AUTO) 0.3 % (0.0-6.0); LYMPHOCYTES # (AUTO) 1.4 K/uL (0.8-4.8); LYMPHOCYTES % (AUTO) 18.9 % (20.0-44.0); MEAN CORPUSCULAR HGB CONC 33 g/dl (31.0-36.0); MEAN CORPUSCULAR VOLUME 91 fL (80-96); MONOCYTES # (AUTO) 0.2 K/uL (0.1-1.30); MONOCYTES % (AUTO) 2.8 % (2.0-12.0); NEUTROPHILS # (AUTO) 5.6 K/uL (1.8-8.9); NEUTROPHILS % (AUTO) 77.7 % (43.0-81.0); WHITE BLOOD COUNT (AUTO) 7.3 K/uL (4.3-11.0)
[2021-07-31 17:58] LABS: RED BLOOD CELL COUNT(AUTO) 1.69 MIL/uL (4.5-6.0)
[2021-07-31 18:01] LABS: HEMATOCRIT 15 % (39-51); PLATELET COUNT (AUTO) 46 K/uL (150-450)
[2021-07-31 18:49] LABS: BAND % (MANUAL) 1 % (0.0-5.0); LYMPHOCYTES % (MANUAL) 17 % (16-48); MONOCYTES % (MANUAL) 5 % (0-11.0); NEUTROPHILS % (MANUAL) 77 (42-76)
--- NOTE | 2021-07-31 19:00 | NUR ---
RN NOTE RECEIVED PATIENT IN BED, AO X 4, IN NO S/SX OF ACUTE DISTRESS AT THIS TIME. BREATHING EVEN AND UNLABORED, SATURATION AT 100% ON 2L VIA NC, SR ON THE MONITOR, HR IS 97. NOTED TENA PICC LINE, ALL HUBS PATENT AND FLUSHING WELL, NO S/S OF INFECTION WITH D5NS INFUSING AT 100 ML/HR. SAFETY MEASURES IMPLEMENTED. PATIENT BED ALARM IS ON. HEAD OF BED ELEVATED. BED IS LOCKED, IN LOWEST POSITION AND SIDE RAILS UP. CALL LIGHT WITHIN REACH OF THE PATIENT. WILL CONTINUE TO MONITOR AND REASSESS FOR ANY CHANGES.
--- NOTE | 2021-07-31 19:34 | NUR ---
RN NOTE TELEPHONE CALL TO BLOOD BANK TO FOLLOW UP ON PRBC PT HGB 5.0 AND BLOOD NOT YET AVAILABLE EARLIER PER AM SHIFT, SPOKE WITH MARGARET, STATED SHE IS GOING FOR LUNCH AND TO CALL BACK AFTER 30 MINUTES. SALES REPRESENTATIVE PUBLICATIONS AWARE
--- NOTE | 2021-07-31 19:38 | NUR ---
111 RN CLOSING NOTES ENDORSED PATIENT IN STABLE CONDITIONS. PATIENT IS CURRENTLY IN BED, AWAKE, A/O X4, ABLE TO VERBALIZE NEEDS. ON 2L OXYGEN VIA NC, O2 SAT IS 99% AT THIS TIME, NO SOB NOTED. NO SIGNIFICANT FINDINGS UPON ALL NURSING ASSESSMENTS. SACRAL REDNESS NOTED, Z GUARD AND MEPILEX APPLIED, KEPT CLEAN AND DRY. IV ACCESS IS NOTED ON LEFT UPPER ARM PICC LINE, IV IS INTACT AND PATENT WITH D5NS 100CC/HR RUNNING. ALL SAFETY MEASURES IMPLEMENTED. ENDORSED PATIENT TO LOCAL OWNER OPERATOR TRUCK DRIVER NURSE FOR SRINI.
[2021-07-31] MEDS ORDERED: ACETAMINOPHEN ES 500 MG TABLET PO ONE (20:00)
[2021-07-31] MEDS ORDERED: diphenhydrAMINE HCL 50 MG/ML VIAL IV ONE (20:00)
[2021-07-31] MEDS ORDERED: DEXAMETHASONE SOD PHOSPHATE 10 MG/ML VIAL IV ONE (20:00)
--- NOTE | 2021-07-31 20:40 | NUR ---
RN NOTE BLOOD TRANSFUSION STARTED AT 2039, VERIFICATION DONE WITH SUPERVISOR CHAR HOUSE ROLLY ACOSTA STABLE, PREMEDICATED PATIENT 30 MINUTES PRIOR TO TRANSFUSION PER MD ORDER. WILL CONTINUE TO MONITOR PATIENT
--- NOTE | 2021-07-31 20:55 | NUR ---
RN NOTE NOTED VS FOLLOWS: BP 115/72, T 97.6, P 105, O2 SAT 100%. NO TRANSFUSION REACTION NOTED. WILL CONT TO MONITOR
--- NOTE | 2021-07-31 21:10 | NUR ---
RN NOTE NOTED VS FOLLOWS: BP 109/69, T 97.7, P 97, O2 SAT 100%. NO TRANSFUSION REACTION NOTED. WILL CONT TO MONITOR
[2021-07-31 21:34] VITALS: BP 115/70
--- NOTE | 2021-07-31 23:10 | NUR ---
RN NOTE END OF TRANSFUSION OF 1 UNIT OF 2 PRBC. VS STABLE, NO TRANSFUSION REACTION NOTED, BREATHING EVEN AND UNLABORED. EVENT SPECIALIST PRODUCT DEMONSTRATOR AWARE
--- NOTE | 2021-07-31 23:30 | NUR ---
RN NOTE BLOOD TRANSFUSION OF 2ND UNIT OF 2 PRBC STARTED AT 2330, CONSENT SIGNED, VERIFICATION DONE WITH MEN'S GARMENT FITTER ELSA, VS STABLE, WILL CONTINUE TO MONITOR PATIENT
--- NOTE | 2021-07-31 23:45 | NUR ---
RN NOTE NOTED VS FOLLOWS: BP 108/75, T 97.5, P 99, O2 SAT 100%. NO TRANSFUSION REACTION NOTED. WILL CONT TO MONITOR
[2021-08-01] VITALS (13 sets, daily range): BP systolic 94–115; BP diastolic 51–76
--- NOTE | 2021-08-01 02:00 | NUR ---
RN NOTE END OF TRANSFUSION OF 2ND BAG OF 2 UNITS PRBC. VS STABLE, NO TRANSFUSION REACTION NOTED, BREATHING EVEN AND UNLABORED. PLATEMAKER AWARE
[2021-08-01] MEDS: CEFEPIME 2 GM in IV D5W 100 ML IV SCH ×3 (02:40→17:22)
[2021-08-01] MEDS: IV D5/ 0.9% NACL 1,000 ML IV SCH ×2 (06:04→13:34)
--- NOTE | 2021-08-01 07:33 | NUR ---
RANGE MANAGER OPENING NOTES PATIENT IS CURRENTLY IN BED, AWAKE, A/O X4, ABLE TO VERBALIZE NEEDS. ON 2L OXYGEN VIA NC, O2 SAT IS 99% AT THIS TIME, NO SOB NOTED. NO SIGNIFICANT FINDINGS UPON ALL NURSING ASSESSMENTS. PATIENT IN STABLE CONDITION. IV ACCESS IS NOTED ON RIGHT UPPER ARM PICC LINE, IV IS INTACT AND PATENT WITH D5NS 100CC/HR RUNNING. ALL SAFETY MEASURES IMPLEMENTED, BED IN LOWEST POSITION, BED BRAKES ENGAGED, AND CALL LIGHTS WITHIN REACH.WILL CONTINUE TO MONITOR.
[2021-08-01] MEDS: ENSURE CLEAR 237 ML LIQUID (MIX BERRY) PO SCH ×3 (07:49→17:23)
[2021-08-01 08:22] LABS: BASOPHILS % (AUTO) 0.1 % (0.0-2.0); EOSINOPHILS % (AUTO) 0.1 % (0.0-6.0); HEMATOCRIT 29 % (39-51); HEMOGLOBIN 9.7 g/dL (13.5-17.5); LYMPHOCYTES # (AUTO) 1.3 K/uL (0.8-4.8); LYMPHOCYTES % (AUTO) 16.9 % (20.0-44.0); MEAN CORPUSCULAR HGB CONC 34 g/dl (31.0-36.0); MEAN CORPUSCULAR VOLUME 93 fL (80-96); MONOCYTES # (AUTO) 0.2 K/uL (0.1-1.30); MONOCYTES % (AUTO) 2.3 % (2.0-12.0); NEUTROPHILS # (AUTO) 6.2 K/uL (1.8-8.9); NEUTROPHILS % (AUTO) 80.6 % (43.0-81.0); RED BLOOD CELL COUNT(AUTO) 3.14 MIL/uL (4.5-6.0); WHITE BLOOD COUNT (AUTO) 7.7 K/uL (4.3-11.0)
[2021-08-01] MEDS: Z GUARD REMEDY 4 OZ OINT TP SCH (08:25)
[2021-08-01] MEDS: PANTOPRAZOLE 40 MG VIAL IV SCH (08:28)
[2021-08-01 08:36] LABS: PLATELET COUNT (AUTO) 26 K/uL (150-450)
[2021-08-01 09:17] LABS: CALCIUM, SERUM 7.8 mg/dL (8.5-10.1); CREATININE 0.9 mg/dL (0.6-1.3); MAGNESIUM 1.9 mg/dL (1.8-2.4); PHOSPHORUS 3.7 mg/dL (2.5-4.9); POTASSIUM 3.9 mmol/L (3.5-5.1)
[2021-08-01 10:25] LABS: D-DIMER 35.2 mg/L(FEU (0.17-0.50)
--- NOTE | 2021-08-01 11:57 | NUR ---
DRY KILN FEEDER NOTE CALLED TO ATUL ROGER RECRUITMENT COORDINATOR CITIZENSHIP INSTRUCTOR NOTIFIED that hg 9.7 platelets 26 fibrinogen 81 ORDERED 1UNITS PLATELETS, 10 UNITS OF CRYOPRECIPITATE 2 UNITS FFP, CALLED TO BLOOD BANK, STATED THAT NO CRYO NOT AVAILABLE OR PLATELETS, WILL F\U
[2021-08-01] MEDS ORDERED: QUETIAPINE FUMARATE 25 MG TABLET GT SCH ×2 (13:00→22:00)
--- NOTE | 2021-08-01 15:00 | NUR ---
COOKING TEACHER NOTE FFP 1 UNIT START TO TRANSFUSE ORDERED
[2021-08-01] MEDS: EPOETIN ALFA-EPBX 10,000 UNIT/ML VIAL IV SCH (15:20)
--- NOTE | 2021-08-01 17:10 | NUR ---
TRANSACTION ADVISORY SERVICES MANAGER NOTE 1 UNIT FFP TRANSFERRED NO ADVERSE REACTION NOTED
[2021-08-01] MEDS: SOD FERRIC GLUC 125 MG in IV NS 0.9% 100 ML IV SCH (17:14)
--- NOTE | 2021-08-01 17:55 | NUR ---
FUNDRAISER NOTE PATIENT ADVANCED TO CLEAR LIQUID DIET PER ORDER BY DOCTOR MARKO
--- NOTE | 2021-08-01 19:22 | NUR ---
karley fu note transferred to 3 [facility] as ordered room 322 with stable condition by [facility] protocol by adina ,report given to marvin fu Addendum: 08/01/21 at 1926 by ZOË PAREDES RN endorsed to marvin fu 1 unit ffp done, one more to transfuse no platelet or criyo is ready at this time
--- NOTE | 2021-08-01 19:54 | NUR ---
RN OPENING NOTES RECEIVED PT IN BED, AWAKE. AOX4, ABLE TO MAKE NEEDS KNOWN. ON NC 2L/MIN AND TOLERATING WELL. NO SOB NOTED. NO S/SX OF RESPIRATORY DISTRESS NOTED. IV ACCESS IN TENA PICC LINE. IV IS INTACT, PATENT, AND FLUSHING WELL. TELE MONITOR DETECTS SR WITH RATE OF 88. SAFETY PRECAUTIONS IN PLACE: BED IN LOWEST, LOCKED POSITION, SIDERAILS UPx2, AND BRAKES ON. TABLE AND CALL LIGHT WITHIN REACH. WILL CONTINUE TO MONITOR.
[2021-08-01 20:05] LABS: BAND % (MANUAL) 6 % (0.0-5.0); LYMPHOCYTES % (MANUAL) 6 % (16-48); MONOCYTES % (MANUAL) 3 % (0-11.0); NEUTROPHILS % (MANUAL) 85 (42-76)
--- NOTE | 2021-08-01 22:53 | NUR ---
OVERRODE TRANSFUSION BECAUSE UNIT WAS NOT SCANNING. NURSING FUEL OIL TRUCK DRIVER, MAHESH, GAVE OKAY TO OVERRIDE. VERIFIED UNIT NUMBER WITH TWO OTHER RNs.
[2021-08-02] VITALS: BP 105/71
[2021-08-02] MEDS: CEFEPIME 2 GM in IV D5W 100 ML IV SCH ×3 (00:47→17:31)
[2021-08-02] MEDS: IV D5/ 0.9% NACL 1,000 ML IV SCH ×3 (00:58→22:50)
[2021-08-02 04:00] VITALS: BP 108/72
--- NOTE | 2021-08-02 06:46 | NUR ---
RN CLOSING NOTES PT IN BED, AWAKE. AOX4, ABLE TO MAKE NEEDS KNOWN. ON NC 2L/MIN AND TOLERATING WELL. NO SOB NOTED. NO S/SX OF RESPIRATORY DISTRESS NOTED. IV ACCESS IN TENA PICC LINE. IV IS INTACT, PATENT, AND FLUSHING WELL. TELE MONITOR DETECTS SR WITH RATE OF 88. ALL NEEDS MET. PT KEPT CLEAN AND DRY. SAFETY PRECAUTIONS IN PLACE: BED IN LOWEST, LOCKED POSITION, SIDERAILS UPx2, AND BRAKES ON. TABLE AND CALL LIGHT WITHIN REACH. WILL ENDORSE TO ONCOMING SHIFT FOR SRINI.
--- NOTE | 2021-08-02 07:22 | NUR ---
LADLE OPERATOR OPENING NOTES RECEIVED PATIENT AWAKE IN BED IN NO ACUTE SIGNS OF DISTRESS. A/O x 4. ABLE TO MAKE NEEDS KNOWN, DENIES PAIN OR ANY DISCOMFORTS AT THIS TIME. TELE MONITOR CURRENTLY SHOWS NSR, HR 115, NO C/O CARDIAC DISTRESS VOICED AT THIS TIME. SCOOBY PICC LINE INTACT WITH IVF OF D5 NS @ 100ML/HR INFUSING WELL. SAFETY PRECAUTIONS MAINTAINED: BED LOCKED AND AT LOWEST POSITION. SIDE-RAILS UP X2 AND CALL LIGHT WITHIN REACH. WILL CONTINUE TO MONITOR PATIENT.
[2021-08-02 08:00] VITALS: BP 117/76
--- NOTE | 2021-08-02 08:08 | NUR ---
RN NOTES PLATELETS X1 UNIT ( 274ML) COLLECTED AND UN-ABLE TO SCAN IN THE SYSTEM DUE TO PRODUCT CODE NOT IN THE COMPUTER SYSTEM, BLOOD BANK TECH CHER AWARE AND WAS VERIFIED. DOWNTIME PAPER FORM USED AND WAS VERIFIED BY TEZ PRECIADO RN. INFUSION STARTED AT 0805 VIA SCOOBY PICC LINE. WILL MONITOR FOR ANY ADVERSE /ALLERGIC REACTIONS.
[2021-08-02] MEDS: ENSURE CLEAR 237 ML LIQUID (MIX BERRY) PO SCH ×3 (08:09→18:15)
--- NOTE | 2021-08-02 08:24 | NUR ---
RN NOTES AFTER 15MINUTES OF PLATELET INFUSION, NO ADVERSE/ALLERGIC REACTIONS NOTED. V/S CHECKED: BP 110/75M P 105, R 18 AND T 97.5F. WILL CONTINUE TO MONITOR.
[2021-08-02] MEDS: Z GUARD REMEDY 4 OZ OINT TP SCH (09:06)
[2021-08-02] MEDS: PANTOPRAZOLE 40 MG VIAL IV SCH (09:06)
--- NOTE | 2021-08-02 09:07 | NUR ---
RN NOTES TRANSFUSION OF PLATELET X1 UNIT (274ML) THIS MORNING FINISHED WITH NO ADVERSE ALLERGIC REACTIONS NOTED. V/S SP TRANSFUSION: BP 97.6M P 113, R 18 AND T 97.6F.
[2021-08-02 11:59] LABS: BASOPHILS % (AUTO) 0.1 % (0.0-2.0); EOSINOPHILS % (AUTO) 0.2 % (0.0-6.0); HEMATOCRIT 24 % (39-51); HEMOGLOBIN 7.9 g/dL (13.5-17.5); LYMPHOCYTES # (AUTO) 0.9 K/uL (0.8-4.8); LYMPHOCYTES % (AUTO) 13.7 % (20.0-44.0); MEAN CORPUSCULAR HGB CONC 34 g/dl (31.0-36.0); MEAN CORPUSCULAR VOLUME 92 fL (80-96); MONOCYTES # (AUTO) 0.2 K/uL (0.1-1.30); MONOCYTES % (AUTO) 2.7 % (2.0-12.0); NEUTROPHILS # (AUTO) 5.3 K/uL (1.8-8.9); NEUTROPHILS % (AUTO) 83.3 % (43.0-81.0); PLATELET COUNT (AUTO) 66 K/uL (150-450); RED BLOOD CELL COUNT(AUTO) 2.56 MIL/uL (4.5-6.0); WHITE BLOOD COUNT (AUTO) 6.4 K/uL (4.3-11.0)
[2021-08-02 12:00] VITALS: BP 116/91
[2021-08-02] MEDS: SOD FERRIC GLUC 125 MG in IV NS 0.9% 100 ML IV SCH (14:11)
[2021-08-02 14:36] LABS: CALCIUM, SERUM 7.2 mg/dL (8.5-10.1); MAGNESIUM 1.9 mg/dL (1.8-2.4); PHOSPHORUS 3.1 mg/dL (2.5-4.9); POTASSIUM 3.5 mmol/L (3.5-5.1)
[2021-08-02] MEDS: EPOETIN ALFA-EPBX 10,000 UNIT/ML VIAL IV SCH (15:35)
[2021-08-02 16:00] VITALS: BP 96/76
--- NOTE | 2021-08-02 18:51 | NUR ---
GIFT OFFICER OPENING NOTES RECEIVED PATIENT AWAKE IN BED IN NO ACUTE SIGNS OF DISTRESS. A/O x 4. ABLE TO MAKE NEEDS KNOWN, DENIES PAIN OR ANY DISCOMFORTS AT THIS TIME.ON 02 VIA N/C AT PT ON TELE MONITOR WITH READING OF NSR-ST, HR 90-130 DURING THE DAY, NO C/O CARDIAC DISTRESS VOICED. SCOOBY PICC LINE INTACT WITH IVF OF D5 NS @ 100ML/HR INFUSING WELL. PT TURNED AND REPOSITIONED Q 2HRS AND PRN. ALL NEEDS AND CARE ATTENDED WELL. SAFETY PRECAUTIONS MAINTAINED: BED LOCKED AND AT LOWEST POSITION. SIDE-RAILS UP X2 AND CALL LIGHT WITHIN REACH. WILL ENDORSE SRINI TO BOAT MASTER NURSE..
--- NOTE | 2021-08-02 19:43 | NUR ---
RN OPENING NOTES RECEIVED PT IN BED, AWAKE, WITH BROTHER AT BEDSIDE. AOX4, ABLE TO MAKE NEEDS KNOWN. ON NC 2L/MIN AND TOLERATING WELL. NO SOB NOTED. NO S/SX OF RESPIRATORY DISTRESS NOTED. IV ACCESS IN TENA PICC LINE. IV IS INTACT, PATENT, AND FLUSHING WELL. TELE MONITOR DETECTS SR WITH RATE OF 85. SAFETY PRECAUTIONS IN PLACE: BED IN LOWEST, LOCKED POSITION, SIDERAILS UPx2, AND BRAKES ON. TABLE AND CALL LIGHT WITHIN REACH. WILL CONTINUE TO MONITOR.
[2021-08-02 20:00] VITALS: BP 113/69
--- NOTE | 2021-08-02 21:11 | NUR ---
ADMINISTERED NORCO PER MD ORDER FOR PAIN. VS WNL. WILL CONTINUE TO MONITOR.
--- NOTE | 2021-08-02 22:07 | NUR ---
RECEIVED REPORT OF CRITICAL LAB FOR PLATELETS OF 29 AND READ BACK TO LAB PERSONNEL FOR VERIFICATION. CONTACTED JAMES TINSLEY.
[2021-08-03] VITALS (50 sets, daily range): BP systolic 87–128; BP diastolic 57–94
[2021-08-03 00:24] LABS: D-DIMER 35.2 mg/L(FEU (0.17-0.50)
[2021-08-03] MEDS ORDERED: IV NS 0.9% 1,000 ML IV ONE (00:30)
--- NOTE | 2021-08-03 00:39 | NUR ---
BP OF 89/72 AND PULSE OF 122. MD AWARE. ORDERED BOLUS OF NS 1L AND STAT CBC. WILL CONTINUE TO MONITOR. Addendum: 08/03/21 at 0152 by JAMI HARGROVE RN REASSESSED BP @ 0130. Addendum: 08/03/21 at 0152 by JAMI HARGROVE RN BP NOW 111/74.
--- NOTE | 2021-08-03 00:46 | NUR ---
SPOKE TO SISTER DUNCAN, AT APPROXIMATELY 2200, UPDATED ON PATIENTS STATUS. .
--- NOTE | 2021-08-03 01:17 | NUR ---
NOTIFIED OF CRITICAL LAB FOR FIBRINOGEN OF 96. UP FROM 81 EARLIER. AWARE.
[2021-08-03] MEDS: CEFEPIME 2 GM in IV D5W 100 ML IV SCH ×3 (01:45→17:38)
[2021-08-03 02:41] LABS: BASOPHILS % (AUTO) 0.1 % (0.0-2.0); EOSINOPHILS % (AUTO) 0.1 % (0.0-6.0); LYMPHOCYTES # (AUTO) 0.8 K/uL (0.8-4.8); LYMPHOCYTES % (AUTO) 7.3 % (20.0-44.0); MEAN CORPUSCULAR HGB CONC 34 g/dl (31.0-36.0); MEAN CORPUSCULAR VOLUME 93 fL (80-96); MONOCYTES # (AUTO) 0.2 K/uL (0.1-1.30); MONOCYTES % (AUTO) 1.7 % (2.0-12.0); NEUTROPHILS # (AUTO) 9.9 K/uL (1.8-8.9); NEUTROPHILS % (AUTO) 90.8 % (43.0-81.0); WHITE BLOOD COUNT (AUTO) 10.9 K/uL (4.3-11.0)
[2021-08-03 04:30] LABS: RED BLOOD CELL COUNT(AUTO) 1.99 MIL/uL (4.5-6.0)
[2021-08-03 04:32] LABS: HEMOGLOBIN 6.2 g/dL (13.5-17.5)
[2021-08-03 04:33] LABS: HEMATOCRIT 18 % (39-51); PLATELET COUNT (AUTO) 17 K/uL (150-450)
--- NOTE | 2021-08-03 04:34 | NUR ---
RECEIVED CRITICAL LABS OF HGB 6.2, HCT 18.4, AND PLATELET OF 17. JAMES TINSLEY NOTIFIED. ORDERED 1 UNIT OF PRBC AND AND 1 UNIT OF FFP.
--- NOTE | 2021-08-03 05:45 | NUR ---
TRANSFERRED PT TO ROOM 263. GAVE REPORT TO RN. PATIENT STABLE.
--- NOTE | 2021-08-03 06:00 | NUR ---
OPENING NOTE PT RECD FROM 3W BY DEON ROGER. PT NOT IN DISTRESS. RIGHT KEVIN CATH NOTED. PT RECEIVES CHEMO. PT ON 2L OF O2 VIA NC. ST ON MONITOR. TENA PICC NOTED, FLUSHED ASEPTICALLY. IVF RUNNING ORDERED. PT PLACED ON MONITOR. ALL NEEDS ATTENDED TO AT THIS TIME. PT HAS ALL BELONGINGS AT BEDSIDE. CALL LIGHT WITHIN REACH. WILL CONT TO MONITOR
[2021-08-03] MEDS ORDERED: PANTOPRAZOLE 40 MG VIAL ONE (06:10)
[2021-08-03] MEDS: PANTOPRAZOLE 80 MG in IV NS 0.9% 100 ML IV ONE ×2 (06:10→07:10)
--- NOTE | 2021-08-03 07:30 | NUR ---
RN CLOSING NO CHANGES. BOLUS PROTONIX GIVEN. ENDORSED TO DAY SHIFT FOR CONTINUATION OF CARE
--- NOTE | 2021-08-03 07:30 | NUR ---
RN MORNING NOTE PT RECEIVED IN BED IN SEMI FOWLERS POSITION ON 2L O2 VIA NC SAT 99% TOLERATING WELL WITH NO SIGNS OF DISTRESS OR LABORED BREATHING. PT IS A/OX4 AND TELE MONITORED ST 120BPMS. PT IS ON CLEAR LIQUID DIET. IV ACCESS L UA PICC LINE INFUSING WITH D5 NS @100ML/HR. BED LOCKED IN LOWEST POSITION X2 GUARD RAILS UP, CALL LIGHT IS WITHIN REACH AND ALL HOSPITAL SAFETY MEASURES ARE IN PLACE. WILL CONTINUE TO MONITOR THIS SHIFT.
[2021-08-03 08:07] LABS: BASOPHILS % (AUTO) 0.2 % (0.0-2.0); EOSINOPHILS % (AUTO) 0.1 % (0.0-6.0); LYMPHOCYTES # (AUTO) 1.1 K/uL (0.8-4.8); LYMPHOCYTES % (AUTO) 10.1 % (20.0-44.0); MEAN CORPUSCULAR HGB CONC 33 g/dl (31.0-36.0); MEAN CORPUSCULAR VOLUME 94 fL (80-96); MONOCYTES # (AUTO) 0.2 K/uL (0.1-1.30); MONOCYTES % (AUTO) 1.5 % (2.0-12.0); NEUTROPHILS # (AUTO) 9.1 K/uL (1.8-8.9); NEUTROPHILS % (AUTO) 88.1 % (43.0-81.0); RED BLOOD CELL COUNT(AUTO) 2.08 MIL/uL (4.5-6.0); WHITE BLOOD COUNT (AUTO) 10.4 K/uL (4.3-11.0)
[2021-08-03 08:11] LABS: HEMATOCRIT 20 % (39-51); HEMOGLOBIN 6.4 g/dL (13.5-17.5); PLATELET COUNT (AUTO) 18 K/uL (150-450)
[2021-08-03] MEDS: ENSURE CLEAR 237 ML LIQUID (MIX BERRY) PO SCH ×3 (08:18→18:36)
[2021-08-03] MEDS: IV D5/ 0.9% NACL 1,000 ML IV SCH ×2 (08:19→17:20)
[2021-08-03 08:34] LABS: CALCIUM, SERUM 7.2 mg/dL (8.5-10.1); CREATININE 1.1 mg/dL (0.6-1.3); MAGNESIUM 1.7 mg/dL (1.8-2.4); PHOSPHORUS 2.6 mg/dL (2.5-4.9); POTASSIUM 2.9 mmol/L (3.5-5.1)
[2021-08-03] MEDS: Z GUARD REMEDY 4 OZ OINT TP SCH (08:39)
[2021-08-03 09:37] LABS: D-DIMER 35.2 mg/L(FEU (0.17-0.50)
[2021-08-03] MEDS ORDERED: diphenhydrAMINE HCL 50 MG/ML VIAL IV ONE (11:00)
[2021-08-03] MEDS ORDERED: ACETAMINOPHEN 325 MG TABLET PO ONE (11:00)
[2021-08-03] MEDS: POTASSIUM CL. PREMIX PERIPHER. 50 ML IV SCH ×6 (11:35→18:16)
[2021-08-03 12:11] LABS: BAND % (MANUAL) 7 % (0.0-5.0); LYMPHOCYTES % (MANUAL) 10 % (16-48); MONOCYTES % (MANUAL) 3 % (0-11.0); NEUTROPHILS % (MANUAL) 80 (42-76)
[2021-08-03 13:24] LABS: BILIRUBIN,DIRECT 0.3 mg/dL (0.0-0.2); BILIRUBIN,TOTAL 0.7 mg/dL (0.2-1.0)
--- NOTE | 2021-08-03 16:10 | NUR ---
RN NOTE PICKED UP REMAINING DOSE OF POTASSIUM CHLORIDE 10 MEQ AND ALSO 2 BAGS OF MAGNESIUM 1GM FROM PHARMACY. MEDICATIONS WERE TIMED OUT FROM [facility]MN[facility] AND CONSULTED WITH PHARMACY AND PICKED UP REMAINING DOSES.
[2021-08-03] MEDS: Magnesium 1GM/D5W 100ML PREMIX 100 ML IV SCH ×2 (18:17→19:28)
--- NOTE | 2021-08-03 19:24 | NUR ---
RN CLOSING NOTE PT IS IN BED IN SEMI FOWLERS POSITION ON 4L O2 VIA NC SAT 100% TOLERATING WELL WITH NO SIGNS OF DISTRESS OR LABORED BREATHING. PT IS A/OX4 AND TELE MONITORED ST 120BPMS. PT IS ON CLEAR LIQUID DIET. PT HAD ONE BLOODY STOOL THIS SHIFT. IV ACCESS L UA PICC LINE INFUSING WITH D5 NS @100ML/HR. PT RECEIVED 10U CRYO (2 POOLS). PT IS STILL WAITING FOR 2 UNITS OF PRBCS. PT ALSO RECEIVED 60 MEQ POTASSIUM CHLORIDE AND 1 OF 2 BAGS OF MAGNESIUM THIS SHIFT. BED LOCKED IN LOWEST POSITION X2 GUARD RAILS UP, CALL LIGHT IS WITHIN REACH AND ALL HOSPITAL SAFETY MEASURES ARE IN PLACE. WILL ENDORSE TO SHRIMP PEELING MACHINE OPERATOR NURSE FOR SRINI.
[2021-08-03] MEDS: SOD FERRIC GLUC 125 MG in IV NS 0.9% 100 ML IV SCH (19:28)
--- NOTE | 2021-08-03 19:30 | NUR ---
RT NOTE NASOTRACHEAL SUCTION PERFORMED, MODERATE THICK BLOODY SECRETIONS NOTED. PT PLACED ON 8LPM SIMPLE MASK. WILL CONTINUE TO MONITOR. ACACIA STARR @ BEDSIDE.
--- NOTE | 2021-08-03 20:00 | NUR ---
BASKETBALL COMMENTATOR RCD PT A/O x4; PT C/O DIFFICULT BREATHING REQUESTING FOR NT SUCTION. PT SUCTIONED BY RT W/O OUTPUT. PT NOTED CONGESTED AT BASES. PLACED ON SIMPLE MASK 8 L BY RT.
[2021-08-03] MEDS ORDERED: PANTOPRAZOLE 40 MG VIAL IV SCH (21:00)
--- NOTE | 2021-08-03 22:40 | NUR ---
CARDROOM SUPERVISOR BLADDER SCAN PERFORMED WITH MORE THAN 200 ML URINE NOTED; PLACED SMALLWOOD CATHETER. URINE OUTPUT NOTED.
--- NOTE | 2021-08-03 22:44 | NUR ---
GEOSPATIAL SCIENTIST DR HAWK NOTIFIED OF CXR RESULTS WITH ORDERS FOR LASIX CARRIED OUT.
[2021-08-03] MEDS ORDERED: FUROSEMIDE 20 MG/2 ML VIAL IV ONE (23:00)
--- NOTE | 2021-08-03 23:55 | NUR ---
RT NOTE PT REQUESTS TO BE ON SIMPLE MASK @ 6 LPM DUE TO COMFORT POST ABG RESULTS. PT TOLERATING WELL. RN RO NOTIFIED.
[2021-08-04] VITALS (22 sets, daily range): BP systolic 75–151; BP diastolic 36–70
--- NOTE | 2021-08-04 | NUR ---
INTER COM SERVICERACACIA TSAI APPLIED FOR TEMP OF 95.
[2021-08-04 00:13] LABS: ABG BASE EXCESS -12.8 mmol/L; ABG OXYGEN SATURATION 98.5 % (92.0-98.5); ABG PO2 192.2 mmHg (75.0-100.0); AaDO2 158.4 mmHg; COHb 0.3 % (0.5-1.5); MetHb 0.3 % (0.0-1.5); O2Hb 97.9 % (94.0-97.0); SITE, ABG Left Radial; VENT MODE, BG SIMPLE MASK 52%
[2021-08-04] MEDS ORDERED: SODIUM BICARBONATE SYR 50 MEQ/50 ML DISP.SYRIN IV ONE ×2 (00:30→08:43)
[2021-08-04] MEDS ORDERED: PHENYLEPHRINE 50 MG in IV NS 0.9% 245 ML IV PRN (00:30)
--- NOTE | 2021-08-04 00:30 | NUR ---
HAIRSPRING I INSPECTOR RELAYED TO A HALEY ABG RESULTS PH 7.400 PCO2 18.0 PO2 192.2 HCO3 10.9 W/ORDERS TO GIVE ONE AMP BICARB. NOTIFIED OF LOW SBP AND TACHYCARDIA W/ORDERS TO START ELY PER PROTOCOL.
[2021-08-04] MEDS ORDERED: PHENYLEPHRINE 10 MG/ML VIAL ONE (00:34)
[2021-08-04] MEDS: CEFEPIME 2 GM in IV D5W 100 ML IV SCH (01:15)
--- NOTE | 2021-08-04 05:34 | NUR ---
WAYS OPERATOR PT NOTED WITH DECREASED HEART RATE AND NON RESPONSIVE; PULSES NOT PALPABLE. CODE BLUE INITIATED. PT AT 0534 S/P CODE BLUE UNABLE TO ACHIEVE ROSC.
--- NOTE | 2021-08-04 05:43 | NUR ---
OFFSET PRINTER BODY RELEASED BY [facility]/W [facility]; CASE NUMBER [id number]
--- NOTE | 2021-08-04 06:00 | NUR ---
HAND LOOM WEAVER POST MORTEM CARE RENDERED
[2021-08-04 06:02] LABS: BASOPHILS % (AUTO) 0.1 % (0.0-2.0); EOSINOPHILS % (AUTO) 0.2 % (0.0-6.0); LYMPHOCYTES # (AUTO) 1.3 K/uL (0.8-4.8); LYMPHOCYTES % (AUTO) 18.3 % (20.0-44.0); MEAN CORPUSCULAR HGB CONC 35 g/dl (31.0-36.0); MEAN CORPUSCULAR VOLUME 92 fL (80-96); MONOCYTES # (AUTO) 0.1 K/uL (0.1-1.30); MONOCYTES % (AUTO) 1.7 % (2.0-12.0); NEUTROPHILS # (AUTO) 5.5 K/uL (1.8-8.9); NEUTROPHILS % (AUTO) 79.7 % (43.0-81.0); WHITE BLOOD COUNT (AUTO) 6.9 K/uL (4.3-11.0)
--- NOTE | 2021-08-04 06:07 | NUR ---
MICA MINER EX MORALES, WHOM PT HAD STATED PREVIOULSY WAS HIS NEXT OF KIN IS AT BEDSIDE.
[2021-08-04 06:19] LABS: D-DIMER 35.2 mg/L(FEU (0.17-0.50)
[2021-08-04 06:27] LABS: BILIRUBIN,TOTAL 0.9 mg/dL (0.2-1.0); CALCIUM, SERUM 7.3 mg/dL (8.5-10.1); CREATININE 1.1 mg/dL (0.6-1.3); MAGNESIUM 2.3 mg/dL (1.8-2.4); POTASSIUM 4.1 mmol/L (3.5-5.1); TOTAL PROTEIN, SERUM 4.2 g/dL (6.4-8.2)
[2021-08-04 06:29] LABS: HEMOGLOBIN 4.7 g/dL (13.5-17.5); RED BLOOD CELL COUNT(AUTO) 1.47 MIL/uL (4.5-6.0)
[2021-08-04 06:30] LABS: HEMATOCRIT 14 % (39-51); PLATELET COUNT (AUTO) 7 K/uL (150-450)
[2021-08-04 06:33] LABS: ALBUMIN 1.2 g/dL (3.4-5.0)
[2021-08-04] MEDS ORDERED: CALCIUM CHLORIDE 1,000 MG/10 ML DISP.SYRIN IV ONE (08:43)
[2021-08-04] MEDS ORDERED: FEE PK DOSING 1 MIN EA MC ONE (08:43)
[2021-08-04] MEDS ORDERED: DEXTROSE 50%-WATER 50 ML DISP.SYRIN IV ONE (08:43)
[2021-08-04] MEDS ORDERED: EPINEPHRINE (1:10,000) SYRINGE 1 MG/10 ML DISP.SYRIN IVP ONE (08:43)
[2021-08-04 13:37] LABS: BAND % (MANUAL) 8 % (0.0-5.0); LYMPHOCYTES % (MANUAL) 19 % (16-48); MONOCYTES % (MANUAL) 5 % (0-11.0); NEUTROPHILS % (MANUAL) 68 (42-76)
== END 2021-08-04 05:34 | DRG 393 ==
LOC: ER 01:04 → TRANSITION 11:45 → TELE1 15:04 → ICU 07-21 10:38 → TELE1 07-23 18:14 → TELE-TD 07-29 10:29 → TELE1 08-01 10:22 → TELE 08-01 19:07 → ICU 08-03 05:33
PROVIDERS: ADMIT Internal Medicine; ATTEND Internal Medicine
PROC: 0W3P8ZZ Control Bleeding in Gastrointestinal Tract, Via Natural or Artificial Opening Endoscopic (ICD-10-PCS; principal; 2021-07-22)
PROC: 30233R1 Transfusion of Nonautologous Platelets into Peripheral Vein, Percutaneous Approach (ICD-10-PCS; 2021-07-22)
PROC: 30233N1 Transfusion of Nonautologous Red Blood Cells into Peripheral Vein, Percutaneous Approach (ICD-10-PCS; 2021-07-24)
PROC: 30233M1 Transfusion of Nonautologous Plasma Cryoprecipitate into Peripheral Vein, Percutaneous Approach (ICD-10-PCS; 2021-07-28)
PROC: 0W9G3ZZ Drainage of Peritoneal Cavity, Percutaneous Approach (ICD-10-PCS; 2021-07-29)
PROC: 30233K1 Transfusion of Nonautologous Frozen Plasma into Peripheral Vein, Percutaneous Approach (ICD-10-PCS; 2021-08-03)
PROC: 0BH18EZ Insertion of Endotracheal Airway into Trachea, Via Natural or Artificial Opening Endoscopic (ICD-10-PCS; 2021-08-04)
PROC: 0BH17EZ Insertion of Endotracheal Airway into Trachea, Via Natural or Artificial Opening (ICD-10-PCS; 2021-08-04)
PROC: 5A2204Z Restoration of Cardiac Rhythm, Single (ICD-10-PCS; 2021-08-04)
DX: K63.3 Ulcer of intestine (principal); D65 Disseminated intravascular coagulation [defibrination syndrome]; D62 Acute posthemorrhagic anemia; D68.8 Other specified coagulation defects; D61.818 Other pancytopenia; C78.7 Secondary malignant neoplasm of liver and intrahepatic bile duct; C77.9 Secondary and unspecified malignant neoplasm of lymph node, unspecified; J90 Pleural effusion, not elsewhere classified; R18.8 Other ascites; J98.11 Atelectasis; Z86.16 Personal history of COVID-19; Z85.038 Personal history of other malignant neoplasm of large intestine; Z90.49 Acquired absence of other specified parts of digestive tract; Z20.822 Contact with and (suspected) exposure to COVID-19; R26.9 Unspecified abnormalities of gait and mobility; D64.9 Anemia, unspecified; T45.1X5A Adverse effect of antineoplastic and immunosuppressive drugs, initial encounter; Y92.9 Unspecified place or not applicable; E88.09 Other disorders of plasma-protein metabolism, not elsewhere classified; E83.51 Hypocalcemia; Z98.890 Other specified postprocedural states; K62.9 Disease of anus and rectum, unspecified; J44.9 Chronic obstructive pulmonary disease, unspecified; Z87.19 Personal history of other diseases of the digestive system
CPT/HCPCS: 31720; 36415; 36600; 71045-TC; 71260-TC; 76942-TC; 80048-TC; 80053-TC; 80076-TC; 82247-TC; 82248-TC; 82378; 82728-TC; 82784; 82962-TC; 83540-TC; 83605-TC; 83690-TC; 83735-TC; 83880; 84100-TC; 84443-TC; 84484-TC; 85025-TC; 85027-TC; 85385-TC; 85396; 85610-TC; 85730-TC; 86334; 86850-TC; 87040-TC; 87081-TC; 87086-TC; 88108-TC; 88305-TC; 93970-TC; 94799-TC; A4216; A6253; C9113; C9803; G0378; J0171; J0692; J0885; J1100; J1200; J1940; J2370; J2704; J2916; J3430; J3475; J3480; J3490; J7030; J7040; J7042; J7050; J7060; P9012; P9016; P9017; P9034; P9035; P9047; Q9967; U0003